=== PATIENT | male | born 1955 | race Caucasian/White ===

== ENCOUNTER → 2018-10-04 07:38 | Outpatient (CLI) | payer OTHER, SELFPAY ==
--- NOTE | 2018-10-04 08:00 | US_ITS ---
US abdomen complete HISTORY: ITS.REASON: RUQ PAIN, VENTRAL HERNIA, GERD, NAUSEA ORDERING PHYSICIAN: Nancy Finnegan PATIENT AGE: 63 years COMPARISON: None FINDINGS: Study is somewhat limited technically due to patient's body habitus. PANCREAS:Not well demonstrated due to overlying bowel gas and patient's body habitus. LIVER:No focal liver lesions demonstrated. Homogeneous echogenicity. No intrahepatic biliary ductal dilatation evident RIGHT KIDNEY:Right kidney is demonstrated in the right lower quadrant. No hydronephrosis LEFT KIDNEY:There is mild cortical thinning of left kidney. No hydronephrosis GALLBLADDER:There is sludge within the gallbladder. No stones gallbladder wall thickening or pericholecystic fluid. AORTA:No evidence of aneurysmal dilatation. SPLEEN:Mild splenomegaly at 14 cm ASCITES:None demonstrated. IMPRESSION: Somewhat limited exam showing sludge within the gallbladder without obvious stones wall thickening or pericholecystic fluid. Suspect right-sided pelvic kidney without hydronephrosis.. Cortical thinning of left kidney Mild splenomegaly
== END ==
PROVIDERS: PCP Nurse Practitioner Family; Visit Provider Nurse Practitioner Family
DX: R10.11 Right upper quadrant pain (principal); R11.0 Nausea; K43.9 Ventral hernia without obstruction or gangrene; K21.0 Gastro-esophageal reflux disease with esophagitis
CPT/HCPCS: 76700

== ENCOUNTER → 2018-11-13 14:49 | Outpatient (POV) | payer OTHER, SELFPAY | PROVIDERS: Visit Provider Nurse Practitioner Acute Care | DX: Z00.00 Encounter for general adult medical examination without abnormal findings (principal) ==

== ENCOUNTER → 2018-12-25 10:09 | Outpatient (CLI) | payer OTHER, SELFPAY ==
--- NOTE | 2018-12-25 10:21 | NM_ITS ---
HEPATOBILIARY SCAN WITH CCK: ORDERING PHYSICIAN : Mook Peterson MD PATIENT AGE: 63 years GENDER: Male HISTORY: Right upper quadrant pain and nausea Following 8.86 millicuries Tc Choletec, images of the right upper quadrant were obtained. There is prompt uptake of radionuclide by the liver which is grossly unremarkable. There is filling of the gallbladder but lack of activity within the small bowel during the first 60 minutes. Nonspecific but can be seen with Sphincter of Oddi spasm or dysfunction. Also worth checking to make sure the patient had no oral opioid pain medicine prior to this study which can affect the Sphincter of Oddi The gallbladder was allowed to fill out to 50 to 60 minutes which point 2.1 MCG micrograms CCK was administered by way infusion pump in the typical fashion. This results in92 percent fraction (normal greater than 50%; borderline 35-50%). The patient experienced nausea with CCK Visual inspection supports robust gallbladder ejection fraction. IMPRESSION: . Normal 92% gallbladder ejection fraction following CCK Patient experienced nausea with CCK administration However I would note that during the first 60 minutes there was lack of small bowel activity on the pre-CCK images, which may reflect Sphincter of Oddi spasm or dysfunction. Correlation required
== END ==
PROVIDERS: PCP Internal Medicine Adolescent Medicine; Visit Provider Internal Medicine Gastroenterology
DX: R10.11 Right upper quadrant pain (principal)
CPT/HCPCS: 78226; A9537; J2805

== ENCOUNTER → 2019-02-15 11:44 | Outpatient (CLI) | payer OTHER, SELFPAY ==
[2019-02-15 11:51] LABS: Adenovirus F 40/41, stool Not Detected (NotDetected); Astrovirus Not Detected (NotDetected); Campylobacter Not Detected (NotDetected); Clostridium Difficile A/B, PCR Not Detected (NotDetected); Cryptosporidium Not Detected (NotDetected); Cyclospora Cayetanesis Not Detected (NotDetected); Entamoeba histolytica Not Detected (NotDetected); Enteroaggregative E coli Not Detected (NotDetected); Enteropathogenic E coli Not Detected (NotDetected); Enterotoxigenic E coli Not Detected (NotDetected); Giardia lamblia Not Detected (NotDetected); Norovirus Not Detected (NotDetected); Plesimonas Shigalloides, PCR Not Detected (NotDetected); Rotavirus A Not Detected (NotDetected); Sapovirus Not Detected (NotDetected); Shiga-like toxin E coli Not Detected (NotDetected); Shigella Enterovasive E coli Not Detected (NotDetected); Vibrio Cholerae Not Detected (NotDetected); Vibrio, PCR Not Detected (NotDetected); Yersinia Entercolitica, PCR Not Detected (NotDetected)
[2019-02-15 20:12] LABS: Salmonella, PCR Detected (NotDetected)
== END ==
PROVIDERS: PCP Internal Medicine Adolescent Medicine; Visit Provider Internal Medicine Adolescent Medicine
DX: R19.7 Diarrhea, unspecified (principal); A02.9 Salmonella infection, unspecified
CPT/HCPCS: 87507

== ENCOUNTER → 2020-08-25 14:12 | Outpatient (CLI) | payer OTHER, MEDICARE, SELFPAY ==
[2020-08-25 15:59] LABS: Coronavirus 19 IgG Antibody Negative (Negative); Coronavirus 19 IgM Antibody Negative (Negative)
== END ==
PROVIDERS: Visit Provider Internal Medicine Adolescent Medicine
DX: Z01.818 Encounter for other preprocedural examination (principal)
CPT/HCPCS: 36415; 86328

== ENCOUNTER → 2020-09-02 13:50 | Outpatient (CLI) | payer OTHER, MEDICARE, SELFPAY | PROVIDERS: PCP Internal Medicine Adolescent Medicine; Visit Provider Internal Medicine Adolescent Medicine | DX: G47.33 Obstructive sleep apnea (adult) (pediatric) (principal) | CPT/HCPCS: 95806 ==

== ENCOUNTER → 2021-03-17 09:42 | Outpatient (CLI) | payer OTHER, MEDICARE, SELFPAY ==
[2021-03-17 13:58] LABS: Basophils # 0.1 K/mm3 (0-0.2); Basophils % 0.9 % (0.1-2.0); Eosinophils # 0.1 K/mm3 (0.0-0.4); Hematocrit 41.2 % (42.0-52.0); Lymphocytes # 1.5 K/mm3 (0.7-4.5); Mean Corpuscular HGB Conc 33.9 g/dL (31.8-35.4); Mean Corpuscular Volume 82.5 fl (80-94); Mean Platelet Volume 8.6 fl (7.4-10.4); Monocytes # 0.3 K/mm3 (0.1-1.0); Monocytes % 5.5 % (1.7-9.3); Neutrophils % 66.6 % (37.0-80.0); Platelet Count 202 K/mm3 (142-424); Red Cell Distribution Width 14.4 % (11.5-17.5)
[2021-03-17 14:15] LABS: Alanine Aminotransferase 43 U/L (12-78); Albumin Level 4.3 g/dl (3.5-5.0); Albumin/Globulin Ratio 1.7 (1.1-1.8); Alkaline Phosphatase 94 U/L (38-126); Anion Gap 13.3 mEq/L (5-15); Aspartate Amino Transferase 30 U/L (17-59); Bilirubin,Total 0.5 mg/dl (0.2-1.3); Blood Urea Nitrogen 15 mg/dl (9-20); Calcium 9.3 mg/dl (8.4-10.2); Carbon Dioxide 29 mmol/L (22.0-30.0); Chloride 100 mmol/L (98-107); Chol/HDL Ratio 3.3 (1-3.5); Cholesterol 146 mg/dl (140-200); Estimated Glomerular Filt Rate 85 ml/min (>60); GFR (African American) 102 ML/MIN (>60); Globulin 2.6 g/dL (1.3-3.2); Glucose 99 mg/dl (74-100); HDL Cholesterol 44 mg/dl (40-60); Potassium 4.3 mmoL/L (3.5-5.1); Sodium 138 mmol/L (136-145); Total Protein,Serum 6.9 g/dl (6.3-8.2); Triglycerides 78 mg/dl (30-150); VLDL Cholesterol 16 mg/dL (0-40)
[2021-03-17 14:42] LABS: Direct LDL Cholesterol 84.99 mg/dL (100-129)
[2021-03-17 14:44] LABS: Thyroid Stimulating Hormone 2.96 uIU/mL (0.465-4.68)
[2021-03-17 15:03] LABS: Vitamin B12 242 pg/mL (239-931)
[2021-03-17 15:23] LABS: Hemoglobin A1C 6.5 % (4.0-6.0)
== END ==
PROVIDERS: Visit Provider Internal Medicine Adolescent Medicine
DX: E11.42 Type 2 diabetes mellitus with diabetic polyneuropathy (principal); E78.5 Hyperlipidemia, unspecified; Z79.84 Long term (current) use of oral hypoglycemic drugs
CPT/HCPCS: 36415; 80053; 80061; 82607; 83036; 84443; 85025

== ENCOUNTER → 2021-08-11 08:22 | Outpatient (CLI) | payer OTHER, MEDICARE, SELFPAY ==
[2021-08-12 11:54] LABS: Basophils % 0.7 % (0.1-2.0); Eosinophils # 0.1 K/mm3 (0.0-0.4); Eosinophils % 2.1 % (0.1-12.0); Hematocrit 43.6 % (42.0-52.0); Lymphocytes # 1.5 K/mm3 (0.7-4.5); Lymphocytes % 25.7 % (10-50); Mean Corpuscular HGB Conc 32.2 g/dL (31.8-35.4); Mean Corpuscular Hemoglobin 28.4 pg (27.0-31.2); Mean Corpuscular Volume 88.3 fl (80-94); Monocytes # 0.4 K/mm3 (0.1-1.0); Monocytes % 6.3 % (1.7-9.3); Neutrophils # 3.9 K/mm3 (1.8-7.8); Neutrophils % 65.2 % (37.0-80.0); Platelet Count 237 K/mm3 (142-424); Red Blood Count 4.93 M/mm3 (4.60-6.20); Red Cell Distribution Width 14.1 % (11.5-17.5); White Blood Count 5.9 K/mm3 (4.8-10.8)
[2021-08-12 12:27] LABS: Chloride 100 mmol/L (98-107); Potassium 5.3 mmoL/L (3.5-5.1); Sodium 138 mmol/L (136-145)
[2021-08-12 12:29] LABS: Blood Urea Nitrogen 18 mg/dl (9-20); Estimated Glomerular Filt Rate 84 ml/min (>60); GFR (African American) 102 ML/MIN (>60)
[2021-08-12 12:30] LABS: Alanine Aminotransferase 59 U/L (12-78); Albumin Level 4.2 g/dl (3.5-5.0); Albumin/Globulin Ratio 1.7 (1.1-1.8); Alkaline Phosphatase 91 U/L (38-126); Anion Gap 13.3 mEq/L (5-15); Aspartate Amino Transferase 38 U/L (17-59); Bilirubin,Total 0.3 mg/dl (0.2-1.3); Calcium 8.8 mg/dl (8.4-10.2); Carbon Dioxide 30 mmol/L (22.0-30.0); Chol/HDL Ratio 3.5 (1-3.5); Cholesterol 143 mg/dl (140-200); Globulin 2.5 g/dL (1.3-3.2); Glucose 154 mg/dl (74-100); HDL Cholesterol 41 mg/dl (40-60); Total Protein,Serum 6.7 g/dl (6.3-8.2); Triglycerides 81 mg/dl (30-150); VLDL Cholesterol 16 mg/dL (0-40)
[2021-08-12 12:41] LABS: Direct LDL Cholesterol 91.26 mg/dL (100-129)
[2021-08-12 14:18] LABS: Hemoglobin A1C 6.2 % (4.0-6.0)
[2021-08-12 22:39] LABS: Prostate Specific Ag Screen 1.4 ng/ml (0.0-4.0)
[2021-08-12 22:57] LABS: Vitamin B12 679 pg/mL (239-931)
== END ==
PROVIDERS: Visit Provider Internal Medicine Adolescent Medicine
DX: Z00.00 Encounter for general adult medical examination without abnormal findings (principal); E11.9 Type 2 diabetes mellitus without complications; E78.5 Hyperlipidemia, unspecified; E11.42 Type 2 diabetes mellitus with diabetic polyneuropathy; Z12.5 Encounter for screening for malignant neoplasm of prostate; Z79.84 Long term (current) use of oral hypoglycemic drugs
CPT/HCPCS: 80053; 80061; 82607; 83036; 85025; G0103

== ENCOUNTER 2021-08-23 13:50 | Emergency (ER) | payer OTHER, MEDICARE, SELFPAY ==
[2021-08-23 13:52] VITALS: BP 174/86; PULSE 92; RESP 18; TEMP 36.8; O2SAT 94; BMI 31.7
--- NOTE | 2021-08-23 14:10 | HMH.EDGENADL ---
ED Disposition Clinical Impression: Knee pain, chronic Qualifiers: Laterality: right Qualified Code(s): M25.561 - Pain in right knee; G89.29 - Other chronic pain Disposition: Home, Self-Care Condition on Discharge: Good Referrals: Michael Ann MD [Primary Care Provider] - 3 days (Call for appointment) Time of Disposition: 14:27 - Critical Care Critical Care Time: No Attestation: On 08/23/21, the high probability of a clinically significant, sudden or life threatening deterioration of the following system(s) required my full and direct attention, intervention and personal management. The time I documented below is in addition to time spent performing reported procedures but includes the following listed in this critical care notation. Medical Decision Making - Medical Records Medical records reviewed: Yes: I reviewed the patient's medical records. - Chip Inquiry Pt receiving controlled substance: No Vital Signs: 08/23/21 13:52 Temperature 98.2 F Temperature Source Oral Pulse Rate [Left Radial] 92 H Respiratory Rate 18 Blood Pressure [Right Arm] 174/86 H Blood Pressure Mean [Right Arm] 115 Blood Pressure Source [Right Arm] Automatic Cuff Blood Pressure Position [Right Arm] Sitting 02 Sat by Pulse Oximetry 94 L Oxygen Delivery Method Room Air Medical Decision Narrative: 66yo M evaluated the emergency department secondary to right knee pain. Patient is in no acute distress and there is been no acute injury. His knee exam is benign other than pain. Suspect the patient has severe arthritis as he reports it is difficult to sleep and the pain wakes him from sleep with any movement. Patient encouraged to follow-up with his PCP for possible steroid injection and referral for orthopedics. General Adult HPI - General Stated complaint: right knee pain Time Seen by Provider: 08/23/21 14:00 Mode of Arrival: Ambulatory - History of Present Illness HPI narrative: 66yo M presents the emergency department secondary right knee pain. Patient reports he has had this for several years but recently worsened. States worsening symptoms x3 days. No fall, twisting injury. No previous surgery or injections to the affected joint. No fever. Not noticed any warmth, redness, swelling to the right knee. - Related Data Home Medications Medication Instructions Recorded Confirmed Alogliptin Benzoate [Nesina] 25 mg PO DAILY 12/15/18 12/15/18 Atorvastatin Calcium [Lipitor 80mg 80 mg PO DAILY 12/15/18 12/15/18 Tab] Gabapentin [Gabapentin 100mg Cap] 100 mg PO DAILY 12/15/18 12/15/18 Ibuprofen [Ibuprofen 200MG Capsule] 200 mg PO DAILY 12/15/18 12/15/18 Metformin HCl 1,000 mg PO DAILY 12/15/18 12/15/18 Omeprazole [Omeprazole 40mg 40 mg PO DAILY 12/15/18 12/15/18 Capsule] Potassium 99 mg PO DAILY 12/15/18 12/15/18 Tamsulosin HCl [Flomax 0.4mg 0.4 mg PO DAILY 12/15/18 12/15/18 capsule] Allergies Allergy/AdvReac Type Severity Reaction Status Date / Time Penicillins Allergy Verified 12/12/18 11:29 [facility] History - Hepatitis A Screen Drug use history?: No Attestation statement:: This patient has been screened for Hepatitis A risk factors. I have reviewed the patient's past medical history: Yes Medical History: Reports:: Diabetes Mellitus Type 2, Hyperlipidemia Denies:: Diabetes Mellitus Type 1, Internal Pacemaker, Lung Disease, Seizures Other Surgeries: No: Pacemaker Family Hx:: No significant family history ROS Obtained: Yes All systems reviewed & no additional complaints - Musculoskeletal Musculoskeletal: Reports as per HPI Physical Exam - General General appearance: alert, in no apparent distress - Head Head exam: atraumatic, normocephalic, normal inspection - Respiratory Respiratory exam: Absent: respiratory distress - Cardiovascular Cardiovascular exam: Present: regular rate, normal rhythm - Abdominal Exam Abdominal exam: Present: soft - Expanded Lower Extremit
[2021-08-23 14:30] VITALS: BP 143/79; PULSE 98; RESP 20; TEMP 36.6; O2SAT 100
== END 2021-08-23 14:31 | disposition home or self-care (01) ==
PROVIDERS: Emergency Provider Family Medicine; PCP Internal Medicine Adolescent Medicine
DX: M25.561 Pain in right knee (principal); G89.29 Other chronic pain; E11.9 Type 2 diabetes mellitus without complications; E78.5 Hyperlipidemia, unspecified
CPT/HCPCS: 99281

== ENCOUNTER → 2021-08-25 15:59 | Outpatient (CLI) | payer OTHER, MEDICARE, SELFPAY ==
--- NOTE | 2021-08-25 | XR_ITS ---
PROCEDURE INFORMATION: Exam: XR Right Knee Exam date and time: 08/25/2021 12:00 AM Age: 66 years old Clinical indication: Pain; Knee; Right; Additional info: Chronic knee pain TECHNIQUE: Imaging protocol: XR Right knee. Views: 3 views. COMPARISON: No relevant prior studies available. FINDINGS: Bones/joints: Tricompartmental degenerative changes are seen worst in the medial compartment with significant loss of joint space. Mild osteophytosis noted as well. No fracture. No malalignment. Trace suprapatellar effusion. Soft tissues: Normal. IMPRESSION: [id number]-rndivvfo tricompartmental degenerative arthritis worst in the medial compartment
== END ==
PROVIDERS: PCP Internal Medicine Adolescent Medicine; Visit Provider Internal Medicine Adolescent Medicine
DX: M25.561 Pain in right knee (principal)
CPT/HCPCS: 73562

== ENCOUNTER → 2022-03-26 07:29 | Outpatient (CLI) | payer MEDICARE, SELFPAY ==
[2022-03-25 16:56] LABS: Chloride 100 mmol/L (98-107); Potassium 4.2 mmoL/L (3.5-5.1); Sodium 136 mmol/L (136-145)
[2022-03-25 16:59] LABS: Alanine Aminotransferase 60 U/L (12-78); Albumin Level 4.2 g/dl (3.5-5.0); Albumin/Globulin Ratio 1.7 (1.1-1.8); Alkaline Phosphatase 93 U/L (38-126); Anion Gap 10.2 mEq/L (5-15); Aspartate Amino Transferase 43 U/L (17-59); Bilirubin,Total 0.5 mg/dl (0.2-1.3); Blood Urea Nitrogen 17 mg/dl (9-20); Carbon Dioxide 30 mmol/L (22.0-30.0); Cholesterol 137 mg/dl (140-200); Estimated Glomerular Filt Rate 84 ml/min (>60); GFR (African American) 102 ML/MIN (>60); Globulin 2.5 g/dL (1.3-3.2); Total Protein,Serum 6.7 g/dl (6.3-8.2); Triglycerides 48 mg/dl (30-150); VLDL Cholesterol 10 mg/dL (0-40)
[2022-03-25 17:00] LABS: Calcium 9.3 mg/dl (8.4-10.2); Chol/HDL Ratio 2.9 (1-3.5); Glucose 92 mg/dl (74-100); HDL Cholesterol 48 mg/dl (40-60)
[2022-03-25 17:11] LABS: Direct LDL Cholesterol 78.32 mg/dL (100-129)
== END ==
PROVIDERS: PCP Internal Medicine Adolescent Medicine; Visit Provider Internal Medicine Adolescent Medicine
DX: E11.9 Type 2 diabetes mellitus without complications (principal); Z79.84 Long term (current) use of oral hypoglycemic drugs
CPT/HCPCS: 80053; 80061; 83036

== ENCOUNTER 2022-05-02 05:23 | Emergency (ER) | payer MEDICARE, SELFPAY ==
--- NOTE | 2022-05-02 05:31 | XR_ITS ---
PROCEDURE INFORMATION: Exam: XR Left Humerus Exam date and time: 05/02/2022 5:30 AM Age: 66 years old Clinical indication: Injury or trauma; Fall; Blunt trauma (contusions or hematomas); Arm, upper; Left; Additional info: PT states his tripped and he went to catch her and has had left shoulder/arm pain ever since TECHNIQUE: Imaging protocol: Radiologic exam of the Left humerus. Views: 2 or more views. COMPARISON: CR CS5 CERVICAL SPINE 4 OR 5 VIEWS 02/04/2017 4:42 PM FINDINGS: Bones/joints: Normal. Soft tissues: Normal. IMPRESSION: No acute findings.
--- NOTE | 2022-05-02 05:31 | XR_ITS ---
PROCEDURE INFORMATION: Exam: XR Left Shoulder Exam date and time: 05/02/2022 5:32 AM Age: 66 years old Clinical indication: Injury or trauma; Fall; Blunt trauma (contusions or hematomas); Shoulder; Left; Additional info: PT states his tripped and he went to catch her and has had left shoulder/arm pain ever since TECHNIQUE: Imaging protocol: Radiologic exam of the Left shoulder. Views: 2 or more views. COMPARISON: CR XR HUMERUS LT 05/02/2022 5:30 AM FINDINGS: Bones/joints: Normal. Soft tissues: Normal. IMPRESSION: No acute findings.
[2022-05-02 05:32] VITALS: BP 206/93; PULSE 100; RESP 18; TEMP 37; O2SAT 94; BMI 34.0
--- NOTE | 2022-05-02 05:33 | HMH.EDUPEXT ---
ED Disposition Clinical Impression: Injury of left shoulder Qualifiers: Encounter type: initial encounter Qualified Code(s): S49.92XA - Unspecified injury of left shoulder and upper arm, initial encounter Disposition: Home, Self-Care Condition on Discharge: Fair Instructions: DI for Rotator Cuff Injury Referrals: LIS VILLEGAS MD [Primary Care Provider] - Ran Sweet JR, MD [Physician] - - Critical Care Critical Care Time: No Attestation: On , the high probability of a clinically significant, sudden or life threatening deterioration of the following system(s) required my full and direct attention, intervention and personal management. The time I documented below is in addition to time spent performing reported procedures but includes the following listed in this critical care notation. Medical Decision Making - Medical Records Medical records reviewed: Yes: I reviewed the patient's medical records. - Chip Inquiry Pt receiving controlled substance: Yes Chip was queried for this patient: No Risks and benefits of using a controlled substance: were discussed with pt by me Vital Signs: 05/02/22 05:32 Temperature 98.6 F Temperature Source Oral Pulse Rate [Apical] 100 H Respiratory Rate 18 Blood Pressure [Right Arm] 206/93 H Blood Pressure Mean [Right Arm] 130 Blood Pressure Source [Right Arm] Automatic Cuff Blood Pressure Position [Right Arm] Sitting 02 Sat by Pulse Oximetry 94 L Oxygen Delivery Method Room Air Orders (Tests/Meds): ORDERS Category Date Time Status XR humerus LT Stat Exams 05/02/22 05:31 Taken XR shoulder LT min 2V Stat Exams 05/02/22 05:31 Taken Medical Decision Narrative: In review this is a 66-year-old male who presents with left arm injury. Hemodynamically stable and nontoxic-appearing. Patient's physical exam most likely concerning for underlying rotator cuff injury. We will shoot x-rays to evaluate for any bony abnormalities. His pain was treated with 5 mg of oral oxycodone. His x-ray studies were negative for any acute fractures. We will get him a sling for comfort and have him follow-up with orthopedics within the next week for evaluation for rotator cuff injury. Stable for discharge. Return precautions given. Upper Extremity HPI - General Stated Complaint: Left shoulder pain Time Seen by Provider: 05/02/22 05:30 - History of Present Illness HPI narrative: Patient is a 66-year-old male who presents after sustaining a left arm injury. He says that he was stopping somebody from falling around 11:00 last night and reached out to grab them when he subsequently started feeling a significant amount of pain in his left upper arm. He says that his pain is worse with movement. Relieved with rest. He says he tried to go to sleep and he continued to have a substantial amount of pain. He has never hurt this arm before. Denies any numbness or tingling to his extremities. Denies any other injuries. - Related Data Home Medications Medication Instructions Recorded Confirmed Atorvastatin Calcium [Lipitor 80mg 80 mg PO DAILY 12/15/18 04/22/22 Tab] Gabapentin [Gabapentin 100mg Cap] 100 mg PO DAILY 12/15/18 04/22/22 Omeprazole [Omeprazole 40mg 40 mg PO DAILY 12/15/18 04/22/22 Capsule] Tamsulosin HCl [Flomax 0.4mg 0.4 mg PO DAILY 12/15/18 04/22/22 capsule] aspirin 81 mg tablet,delayed 81 mg PO DAILY tab 03/25/22 04/22/22 release fluticasone propionate 50 1 spray NS DAILY 03/25/22 04/22/22 mcg/actuation nasal spray,suspension glimepiride 2 mg tablet 2 mg PO BID tab 03/25/22 04/22/22 Previous Rx's Medication Instructions Recorded peg 3350-electrolytes 236 240 ml PO Q10M #4000 ml 03/31/22 gram-22.74 gram-6.74 gram-5.86 gram solution cetirizine 10 mg tablet 10 mg PO DAILY 90 Days #90 tab 04/07/22 metformin 1,000 mg tablet 1,000 mg PO BID 90 Days #180 tab 04/07/22 losartan 100 1 tab PO DAILY 90 Days #90 tab 04/22/22 mg-h
[2022-05-02 06:04] VITALS: BP 180/78; PULSE 78; RESP 18; TEMP 36.8; O2SAT 99
== END 2022-05-02 06:06 | disposition home or self-care (01) ==
PROVIDERS: Emergency Provider Student in an Organized Health Care Education/Training Program; PCP Internal Medicine Adolescent Medicine
DX: S49.92XA Unspecified injury of left shoulder and upper arm, initial encounter (principal)
CPT/HCPCS: 73030; 73060; 99284

== ENCOUNTER → 2022-06-02 13:30 | Outpatient (CLI) | payer MEDICARE, SELFPAY | PROVIDERS: PCP Internal Medicine Adolescent Medicine; Visit Provider Surgery | DX: Z01.812 Encounter for preprocedural laboratory examination (principal); Z20.822 Contact with and (suspected) exposure to COVID-19; Z12.11 Encounter for screening for malignant neoplasm of colon | CPT/HCPCS: C9803; U0003; U0005 ==

== ENCOUNTER 2022-06-04 09:18 | Day surgery (SDC) | payer MEDICARE, SELFPAY ==
[2022-06-04 09:43] VITALS: BP 174/77; PULSE 86; RESP 18; TEMP 36.7; O2SAT 94; BMI 35.4
[2022-06-04 09:52] LABS: POC Glucose,Bedside 117 (70-110)
[2022-06-04 10:37] VITALS: O2SAT 94
--- NOTE | 2022-06-04 10:38 | EXP.ANES.CKL ---
PFSH PFS Medical History (Updated 06/04/22 @ 09:49 by Anila James RN) Allergies Aneurysm Diabetes mellitus, type 2 History of cataract History of gastroesophageal reflux (GERD) Hyperlipidemia Hypertension Osteoarthritis Overactive bladder Surgical History (Updated 06/04/22 @ 09:49 by Anila James RN) History of colonoscopy Family History (Updated 06/04/22 @ 09:50 by Anila James RN) Other Family history of diabetes mellitus type II Social History (Updated 06/04/22 @ 09:50 by Anila James RN) Smoking Status: Never smoker alcohol intake: never substance use type: denies use current occupational status: retired Travel in the last 8 weeks: None household members: spouse caffeine: Yes [facility] Anesthesia Checklist Patient Identification Patient Identification: Arm Band Structural Data Admitted From: Home Planned Operative Procedure/s: Colonoscopy Consent for Planned Operative Procedure(s) Verified: Yes Verified Documents: Surgical Consent and History and Physical NPO Status Verified Time NPO: 00:00 Additional verifications Anesthesia Reactions: No Airway Assessment C-Spine Mobility Assessed: Yes TMJ Mobility Assessed: Yes Dentition: Good Dentition Neurological Assessment Level of Consciousness: Awake and Alert Anesthesia Plan Anesthesia Risk discussed: Yes Anesthesia Plan: Verified ASA Class: III Anesthesia Type: MAC
[2022-06-04 11:38] VITALS: BP 133/78; PULSE 79; RESP 16; TEMP 36.3; O2SAT 89
--- NOTE | 2022-06-04 11:38 | HMH.SCOPE ---
Procedure: Date: 06/04/22 Patient Date of :: 1955 Procedure Performed:: Total colonoscopy with polypectomy using snare and biopsy Indications:: Patient is a 67-year-old male with history of hypertension, diabetes, sleep apnea from [place] referred by Dr. Michael Ann for colonoscopy. Patient had undergone apparently previous colonoscopy a few years ago and had 5 polyps removed. Performing Provider:: Lai Cortez MD Referring Provider:: Michael Ann MD Sedation:: MAC sedation Procedure:: Patient was taken to endoscopy procedure room. He was positioned in lateral decubitus position. Adequate intravenous sedation was achieved with anesthesia titration propofol. Variable Olympus colonoscope was inserted via the anus. Was advanced to the cecum with some minor difficulty due to redundancy of the sigmoid colon. Colonic preparation was fair to poor with particulate stool throughout the colon and some undigested vegetable matter and undigested pills. Ileocecal valve and appendiceal orifice were identified. Colonoscope was slowly withdrawn through the colon with thorough irrigation and suctioning performed however the colon could not be completely cleared allowing for fair to decent visualization. Polyps were encountered. They were removed by a variety of technique. Please see findings below. He had some scattered diverticulosis. Retroflexion within the rectum revealed no evidence of any pathologic internal hemorrhoids. Colonoscope was withdrawn. Findings:: Patient had an irregular adenomatous appearing ascending polyp measuring about 7 to 8 mm. Attempt was made to remove this with cold snare with completion polypectomy performed with hot snare. Transverse colon polyp removed with cold snare Transverse colon polyp #2 removed with cold snare Diminutive splenic flexure polyp removed with cold snare Sigmoid polyp removed with cold snare Rectosigmoid polyp removed with biopsy forceps He had a total of 6 colon polyps removed most notable is the ascending colon polyp removed with hot snare measuring about 7 to 8 mm Scattered diverticulosis Recommendations:: Repeat colonoscopy pending pathology. Given suboptimal preparation and polyps likely within 2 years. With repeat colonoscopy would recommend actual low residue diet and alternate bowel prep Complications:: None immediately apparent Estimated blood obtained (mL): 2
[2022-06-04 11:48] VITALS: BP 126/78; PULSE 73; RESP 16; O2SAT 97
[2022-06-04 11:58] VITALS: BP 149/78; PULSE 73; RESP 16; TEMP 36.3; O2SAT 95
[2022-06-04 12:08] VITALS: BP 150/78; PULSE 73; RESP 16; TEMP 36.3; O2SAT 95
== END 2022-06-04 12:15 | disposition home or self-care (01) ==
PROVIDERS: PCP Internal Medicine Adolescent Medicine; Visit Provider Surgery
PROC: 0DJD8ZZ Inspection of Lower Intestinal Tract, Via Natural or Artificial Opening Endoscopic (ICD-10-PCS; principal; 2022-06-04 10:30)
DX: Z12.11 Encounter for screening for malignant neoplasm of colon (principal); K63.5 Polyp of colon; Z86.010 Personal history of colon polyps; K57.90 Diverticulosis of intestine, part unspecified, without perforation or abscess without bleeding; Z79.899 Other long term (current) drug therapy; E11.9 Type 2 diabetes mellitus without complications
CPT/HCPCS: 45380; 45385; 82962; 88305; J2704

== ENCOUNTER → 2022-06-24 14:09 | Outpatient (CLI) | payer MEDICARE, SELFPAY ==
[2022-06-24 19:10] LABS: Basophils # 0.1 K/mm3 (0-0.2); Basophils % 0.9 % (0.1-2.0); Eosinophils # 0.4 K/mm3 (0.0-0.4); Eosinophils % 4.7 % (0.1-12.0); Hemoglobin 11.5 g/dL (14.1-18.0); Lymphocytes % 27.5 % (10-50); Mean Corpuscular HGB Conc 32.9 g/dL (31.8-35.4); Mean Corpuscular Hemoglobin 28.7 pg (27.0-31.2); Mean Corpuscular Volume 87.2 fl (80-94); Mean Platelet Volume 9.8 fl (7.4-10.4); Monocytes # 0.4 K/mm3 (0.1-1.0); Monocytes % 5.2 % (1.7-9.3); Neutrophils # 4.6 K/mm3 (1.8-7.8); Neutrophils % 61.7 % (37.0-80.0); Platelet Count 271 K/mm3 (142-424); Red Blood Count 4.02 M/mm3 (4.60-6.20); White Blood Count 7.4 K/mm3 (4.8-10.8)
[2022-06-24 19:53] LABS: Anion Gap 16.4 mEq/L (5-15); Blood Urea Nitrogen 25 mg/dl (9-20); Calcium 8.7 mg/dl (8.4-10.2); Carbon Dioxide 31 mmol/L (22.0-30.0); Chloride 95 mmol/L (98-107); Estimated Glomerular Filt Rate 67 ml/min (>60); GFR (African American) 81 ML/MIN (>60); Glucose 119 mg/dl (74-100); Potassium 4.4 mmoL/L (3.5-5.1); Sodium 138 mmol/L (136-145)
== END ==
PROVIDERS: PCP Internal Medicine Adolescent Medicine; Visit Provider Internal Medicine Adolescent Medicine
DX: K92.2 Gastrointestinal hemorrhage, unspecified (principal); M25.512 Pain in left shoulder
CPT/HCPCS: 80048; 85025

== ENCOUNTER → 2022-07-01 14:24 | Outpatient (CLI) | payer MEDICARE, SELFPAY ==
--- NOTE | 2022-07-01 14:25 | MR_ITS ---
FINAL REPORT CLINICAL HISTORY: left shoulder pain injury x 1 month ago limited rom FINDINGS: Multiplanar MR imaging of the left shoulder was performed without contrast. There are complete tears of the distal supraspinatus and infraspinatus tendons. The tendons are retracted to the mid humeral head. There is mild supraspinatus and moderate infraspinatus muscle atrophy. There is mild a.c. joint arthrosis with mild outlet narrowing. A moderate amount of fluid is present in the acromioclavicular joint and subacromial/subdeltoid bursa. No labral tear is identified. The long head of the biceps tendon is intact. No significant glenohumeral joint effusion is identified. There is no evidence of soft tissue mass or cyst. IMPRESSION: Complete tears of the distal supraspinatus and infraspinatus tendon as above. Supraspinatus and infraspinatus muscle atrophy. Mild a.c. joint arthrosis with moderate subacromial/subdeltoid bursitis. Reviewed, Interpreted and Dictated by Lai Hedrick III, MD Transcribed by [place] Cruz Authenticated and . [facility]
== END ==
PROVIDERS: PCP Internal Medicine Adolescent Medicine; Visit Provider Internal Medicine Adolescent Medicine
DX: M75.102 Unspecified rotator cuff tear or rupture of left shoulder, not specified as traumatic (principal)
CPT/HCPCS: 73221

== ENCOUNTER → 2022-07-16 12:36 | Outpatient (CLI) | payer MEDICARE, SELFPAY ==
--- NOTE | 2022-07-16 13:07 | XR_ITS ---
FINAL REPORT CLINICAL HISTORY: pre op, htn FINDINGS: 2 views of the chest were obtained . The heart is normal in size. The mediastinum is within normal limits. The lungs are clear. There is no pneumothorax. Osseous structures demonstrate moderate degenerative changes of the thoracic spine. IMPRESSION: No acute cardiopulmonary process. Reviewed, Interpreted and Dictated by Lai Hedrick III, MD Transcribed by Izzy Hrat Authenticated and [facility]
[2022-07-16 13:58] LABS: Hemoglobin A1C 7.6 % (4.0-6.0)
[2022-07-16 14:05] LABS: Basophils % 0.6 % (0.1-2.0); Eosinophils # 0.1 K/mm3 (0.0-0.4); Eosinophils % 1.9 % (0.1-12.0); Hematocrit 38.1 % (42.0-52.0); Hemoglobin 12.1 g/dL (14.1-18.0); Lymphocytes # 1.6 K/mm3 (0.7-4.5); Lymphocytes % 23.5 % (10-50); Mean Corpuscular HGB Conc 31.7 g/dL (31.8-35.4); Mean Corpuscular Hemoglobin 27.9 pg (27.0-31.2); Mean Corpuscular Volume 88.1 fl (80-94); Monocytes # 0.3 K/mm3 (0.1-1.0); Monocytes % 4.6 % (1.7-9.3); Neutrophils # 4.8 K/mm3 (1.8-7.8); Neutrophils % 69.4 % (37.0-80.0); Platelet Count 288 K/mm3 (142-424); Red Blood Count 4.33 M/mm3 (4.60-6.20); Red Cell Distribution Width 14.4 % (11.5-17.5); White Blood Count 6.8 K/mm3 (4.8-10.8)
[2022-07-16 14:07] LABS: Chloride 98 mmol/L (98-107); Potassium 4.1 mmoL/L (3.5-5.1); Sodium 139 mmol/L (136-145)
[2022-07-16 14:10] LABS: Alanine Aminotransferase 46 U/L (12-78); Albumin Level 4.5 g/dl (3.5-5.0); Alkaline Phosphatase 103 U/L (38-126); Anion Gap 15.1 mEq/L (5-15); Aspartate Amino Transferase 32 U/L (17-59); Bilirubin,Total < 0.1 mg/dl (0.2-1.3); Blood Urea Nitrogen 14 mg/dl (9-20); Carbon Dioxide 30 mmol/L (22.0-30.0); Estimated Glomerular Filt Rate 84 ml/min (>60); GFR (African American) 102 ML/MIN (>60); Globulin 2.3 g/dL (1.3-3.2); Total Protein,Serum 6.8 g/dl (6.3-8.2)
[2022-07-16 14:11] LABS: Calcium 8.5 mg/dl (8.4-10.2); Glucose 140 mg/dl (74-100)
== END ==
PROVIDERS: PCP Internal Medicine Adolescent Medicine; Visit Provider Orthopaedic Surgery
DX: M75.102 Unspecified rotator cuff tear or rupture of left shoulder, not specified as traumatic (principal); G89.29 Other chronic pain; M25.561 Pain in right knee; E11.9 Type 2 diabetes mellitus without complications; Z79.84 Long term (current) use of oral hypoglycemic drugs
CPT/HCPCS: 36415; 71046; 80053; 83036; 85025

== ENCOUNTER 2022-08-03 08:13 | Day surgery (SDC) | payer MEDICARE, SELFPAY ==
[2022-08-02 08:46] VITALS: BMI 36.1
[2022-08-03] VITALS (11 sets, daily range): BP systolic 145–185; BP diastolic 68–88; PULSE 71–98; RESP 16–18; TEMP 36.1–36.6; O2SAT 91–100
[2022-08-03 09:15] LABS: POC Glucose,Bedside 141 (70-110)
--- NOTE | 2022-08-03 09:44 | EXP.ANES.CKL ---
[facility] Medical History Allergies Aneurysm Diabetes mellitus, type 2 History of cataract History of gastroesophageal reflux (GERD) Hyperlipidemia Hypertension Osteoarthritis Overactive bladder Sleep apnea Surgical History History of colonoscopy Family History Other Family history of diabetes mellitus type II Social History Smoking Status: Never smoker alcohol intake: never substance use type: denies use current occupational status: retired Travel in the last 8 weeks: None household members: spouse caffeine: Yes [facility] Anesthesia Checklist Patient Identification Patient Identification: Arm Band Structural Data Admitted From: Home Planned Operative Procedure/s: Left Shoulder Arthroscopy, Rotator Cuff Repair Consent for Planned Operative Procedure(s) Verified: Yes Verified Documents: Surgical Consent and History and Physical NPO Status Verified Time NPO: 00:00 Additional verifications Anesthesia Reactions: No Hx Blood Transfusions: No Blood Transfusion Reaction: No Airway Assessment C-Spine Mobility Assessed: Yes TMJ Mobility Assessed: Yes Dentition: Good Dentition Neurological Assessment Level of Consciousness: Awake and Alert Anesthesia Plan Anesthesia Risk discussed: Yes Anesthesia Plan: Verified ASA Class: III Anesthesia Type: General w/block (Left Interscalene Block. Risks/benefits explained. Pt verbalized understanding)
--- NOTE | 2022-08-03 12:49 | EXP.OP.NOTE ---
Date of procedure: 08/03/22 Pre-op Diagnosis:: Left shoulder rotator cuff tear and impingement Post-op Diagnosis:: Left shoulder rotator cuff tear and impingement Procedure performed:: Left shoulder arthroscopy with rotator cuff repair and subacromial decompression Surgeon:: Damian Moreno MD Fitter Type Bar And Segment(s):: TIAGO Samay[place] KAIAWHINA KOHANGA REO:: Aditya Carnes Anesthesia: GETA and regional Estimated blood loss (mL): 5 Clinical Note:: Lai is a very pleasant 67-year-old male who recently injured his left shoulder. MRI revealed a large traumatic full-thickness rotator cuff tear of the supraspinatus and infraspinatus with retraction to the mid humeral head. Minimal muscle atrophy. Consistent with an acute traumatic tear. He had very limited active range of motion. We discussed all the risks, benefits and alternatives to left shoulder arthroscopy for rotator cuff repair and he agreed to proceed. Operative findings:: Left shoulder large full-thickness retracted rotator cuff tear of the supraspinatus and infraspinatus. Rotator cuff tendon tear had good mobility and we were able to restore the footprint to the greater tuberosity. Biceps tendon was intact. Minimal glenohumeral joint degenerative changes. Intact subscapularis tendon. Operative note:: The patient was seen in the preoperative holding area. He received Ancef 2 g IV prophylactic antibiotics within 1 hour incision time. I marked the left shoulder to confirm the correct operative site. Anesthesia performed an interscalene block for perioperative pain control and he was brought back to the operating room. General anesthesia induced without difficulty. He was placed in the lateral decubitus position and held in place with a beanbag. Axillary roll was placed and all of his bony prominences were well-padded. Left upper extremity prepped and draped in usual sterile fashion. Left arm was placed in the arm garcia with 15 pounds of traction. Timeout performed to confirm left shoulder arthroscopy and patient Lai Jordan. I made a posterior lateral viewing portal with an 11 blade scalpel. Arthroscope was introduced into the shoulder joint. I made an anterior superior portal localizing this with a spinal needle. I placed a 5.5 mm trocar over the switching stick. Diagnostic arthroscopy commenced. Long head biceps tendon seen to be intact. Mild chondromalacia of the glenohumeral joint that was debrided with a 4.0 mm shaver. Age expected labral degenerative changes debrided with a shaver as well. Subscapularis tendon seen to be intact. Large retracted rotator cuff tear of the supraspinatus and infraspinatus. The undersurface of this tear was debrided with a shaver back to a smooth stable border. The arthroscope was then redirected in the subacromial space. Lateral portal was established and a 7.0 mm trocar was placed through the lateral portal. The edges of the acromion were well-defined with a 4.0 mm shaver and then electrocautery wand. He was seen to have a subacromial spur anterior aspect of the acromion. This was treated with a subacromial decompression with a 4.0 mm barrel bur. We removed 5 to 8 mm of bone from the anterior aspect of the acromion back to a smooth surface. The bursal side of the cuff was debrided. He was seen to have a large retracted tear to the midportion of the humeral head. The greater tuberosity was debrided for repair. The anterior trocar was brought into the subacromial space for suture management. The rotator cuff tear of the supraspinatus and infraspinatus was seen to have good mobility for repair. We then proceeded with rotator cuff repair. Through an accessory lateral portal we placed 1 Mitek suture anchor double loaded with suture and suture tape. This was placed on the anterior medial aspect of the greater tuberosity for the first medial row anchor. We used the express sew suture passer to pass all 4 limbs of the suture and suture tape through the rotator cuff
--- NOTE | 2022-08-03 12:57 | P.PNANES_ITS ---
[facility] Anesthesia Record Part I Anesthesia Record I Intake, IV Amount: 1,300 Estimated blood loss (mL): 20 Urine output (mL): 0 Blood Pressure: 175/84 SaO2: 97 Pulse Rate: 93 Respiratory Rate: 16 Temperature: 97.0 F Patient is:: Drowsy Stable to PACU at:: 12:53
--- NOTE | 2022-08-03 13:30 | PC.NURSE ---
Pt experiencing frequent PAC, MARKEL Maloney at bedside, states to get EKG.
--- NOTE | 2022-08-03 13:37 | PC.NURSE ---
ekg at bedside.
--- NOTE | 2022-08-03 13:38 | ECG_ITS ---
APPROVED REPORT Exam: Resting ECG HR:99 bpm ECG Measurements Heart Rate 99 AXES NH 193 P 59 QRSd 106 QRS -13 QT 376 T 61 QTc 432 Conclusion SINUS RHYTHM WITH FREQUENT SUPRAVENTRICULAR PREMATURE COMPLEXES ABNORMAL RHYTHM ECG UNCONFIRMED REPORT Electronically signed by : Michael Ann MD 08/03/2022 18:06:44
--- NOTE | 2022-08-03 13:48 | PC.NURSE ---
EKG cleared per MARKEL Maloney and LeiLUMBER PLANER
--- NOTE | 2022-08-04 08:08 | EXP.ANES.II ---
[facility] Anesthesia Record Part II Anesthesia Record Part II Discharge Time: 13:47 Destination: Surgical Day Care (OP Surgery) PACU nurse assessment reviewed?: Yes Patient Condition:: Good Anesthesia Complications:: None Swallowing reflex intact?: Yes Cyanosis?: No Blood Pressure: 162/82 Pulse Rate: 98 Temperature: 97 F Mental Status: Alert & Oriented Pain level:: 0 Nausea and/or vomitting:: None Intake, IV Amount: 0
[2022-08-04 08:09] VITALS: BP 162/82; PULSE 98; TEMP 36.1
== END 2022-08-03 14:30 | disposition home or self-care (01) ==
PROVIDERS: PCP Internal Medicine Adolescent Medicine; Visit Provider Orthopaedic Surgery
PROC: (CPT 29805; principal; 2022-08-03 10:15)
DX: S46.012A Strain of muscle(s) and tendon(s) of the rotator cuff of left shoulder, initial encounter (principal); E11.9 Type 2 diabetes mellitus without complications; Z79.84 Long term (current) use of oral hypoglycemic drugs; I10 Essential (primary) hypertension; E78.5 Hyperlipidemia, unspecified; Z79.899 Other long term (current) drug therapy
CPT/HCPCS: 29826; 29827; 82962; 93005; 96374; C1713; J2405

== ENCOUNTER 2022-11-18 13:00 | Outpatient (RCR) | payer MEDICARE, SELFPAY ==
--- NOTE | 2022-08-25 11:59 | HMH.PTOPEV ---
PT Outpatient Evaluation Rehab PT Outpatient Evaluation Start: 08/25/22 10:07 Freq: Status: Active Protocol: Document 08/25/22 10:07 PDESEROUX (Rec: 08/25/22 11:59 [email or web address] [id number]) E-signed By Jarod Delcid, PT Outpatient Therapy Subjective History Subjective History Pt. is a 67 year old male whom presents to [facility] in [place] for the initial evaluation this date( 08/25/22) w/ c/o acute and intermittent LUE shldr. post- surgical P!, numbness, and weakness S/P LUE shldr. scope w/ RC repair on 08/03/22. Pt. reports having no P! at rest, but states P! jumps to a 6/10 w/ movement. Pt. reports being instructed to remain in sling until RTMD(09/10/22), can doff sling when bathing or sitting in a recliner per pt. report. Pt. also reports being instructed to not use the LUE nor sleep on his L side at this time. Current medications include Glimepiride, Losartan , Metformin, Omeprazole, Tamsulosin, Oxycodone, Aspirin , Atorvastatin, Cetirizine, Fluticasone, and Gabapentin. PMH includes Hyperlipidemia, Hypertension, DM-II, and GERD. Chief Complaint Pain,Spasms,Stiff,Weakness Symptom Type Ache,Sharp,Dull,Stabbing, Numbness,Shooting Symptoms Relieved By Rest/Positioning,Ice,Brace/ Support,Prescription Meds Symptoms Aggravated By Physical Activity,Lifting Prior Functional Limitations None Current Functional Limitations Reaching,Lifting,Housework, Dressing,Sleeping,Recreation Activity Symptom Description Activity Dependent Level of pain today (0-10) 0 Pain scale - at its best (0-10) 0 Pain scale - at its worst (0-10) 6 Shoulder/Elbow Eval Shoulder Objective Measurements Palpation Tenderness tenderness shoulder exam standard left tenderness over the bicipital tendon left shoulder exam standard tenderness over the SA bursa shoulder left exam standard Shoulder Palpation
== END 2022-11-23 14:26 | disposition home or self-care (01) ==
LOC: PT 13:00
PROVIDERS: PCP Internal Medicine Adolescent Medicine; Visit Provider Orthopaedic Surgery
DX: M25.512 Pain in left shoulder (principal); M75.102 Unspecified rotator cuff tear or rupture of left shoulder, not specified as traumatic
CPT/HCPCS: 97010; 97014; 97110; 97112; 97140; 97163; 97164; 97530; G0283

== ENCOUNTER → 2022-11-25 06:44 | Outpatient (CLI) | payer MEDICARE, SELFPAY ==
[2022-11-25 16:57] LABS: Chloride 97 mmol/L (98-107)
[2022-11-25 16:58] LABS: Sodium 134 mmol/L (136-145)
[2022-11-25 17:00] LABS: Alanine Aminotransferase 74 U/L (12-78); Alkaline Phosphatase 124 U/L (38-126); Aspartate Amino Transferase 58 U/L (17-59); Bilirubin,Total 0.2 mg/dl (0.2-1.3); Blood Urea Nitrogen 20 mg/dl (9-20); Estimated Glomerular Filt Rate 84 ml/min (>60); GFR (African American) 102 ML/MIN (>60)
[2022-11-25 17:01] LABS: Albumin/Globulin Ratio 1.7 (1.1-1.8); Calcium 8.7 mg/dl (8.4-10.2); Carbon Dioxide 28 mmol/L (22.0-30.0); Globulin 2.4 g/dL (1.3-3.2); Glucose 197 mg/dl (74-100); Total Protein,Serum 6.4 g/dl (6.3-8.2)
[2022-11-25 17:09] LABS: Creatinine,Urine Random 123 mg/dL (Not Estab.); Microalbumin < 6.000 mg/L (0-16.7)
[2022-11-25 17:31] LABS: Basophils % 0.5 % (0.1-2.0); Eosinophils # 0.1 K/mm3 (0.0-0.4); Eosinophils % 1.7 % (0.1-12.0); Hematocrit 41.1 % (42.0-52.0); Hemoglobin 13.2 g/dL (14.1-18.0); Lymphocytes # 1.9 K/mm3 (0.7-4.5); Lymphocytes % 23.9 % (10-50); Mean Corpuscular Hemoglobin 26.6 pg (27.0-31.2); Mean Corpuscular Volume 82.9 fl (80-94); Mean Platelet Volume 9.9 fl (7.4-10.4); Monocytes # 0.5 K/mm3 (0.1-1.0); Monocytes % 5.7 % (1.7-9.3); Neutrophils # 5.6 K/mm3 (1.8-7.8); Neutrophils % 68.3 % (37.0-80.0); Platelet Count 251 K/mm3 (142-424); Red Blood Count 4.95 M/mm3 (4.60-6.20); Red Cell Distribution Width 15.7 % (11.5-17.5); White Blood Count 8.1 K/mm3 (4.8-10.8)
[2022-11-25 17:51] LABS: Hemoglobin A1C 10.7 % (4.0-6.0)
== END ==
PROVIDERS: PCP Family Medicine; Visit Provider Family Medicine
DX: E11.9 Type 2 diabetes mellitus without complications; I10 Essential (primary) hypertension; Z79.84 Long term (current) use of oral hypoglycemic drugs
CPT/HCPCS: 80053; 82043; 82570; 83036; 85025

== ENCOUNTER → 2023-03-31 10:20 | Outpatient (CLI) | payer MEDICARE, SELFPAY ==
[2023-03-31 16:44] LABS: Basophils % 0.2 % (0.1-2.0); Eosinophils # 0.2 K/mm3 (0.0-0.4); Hemoglobin 13.1 g/dL (14.1-18.0); Lymphocytes # 1.4 K/mm3 (0.7-4.5); Lymphocytes % 20.9 % (10-50); Mean Corpuscular HGB Conc 31.1 g/dL (31.8-35.4); Mean Corpuscular Hemoglobin 26.5 pg (27.0-31.2); Mean Platelet Volume 8.8 fl (7.4-10.4); Monocytes # 0.4 K/mm3 (0.1-1.0); Monocytes % 5.5 % (1.7-9.3); Neutrophils # 4.7 K/mm3 (1.8-7.8); Neutrophils % 70.4 % (37.0-80.0); Platelet Count 253 K/mm3 (142-424); Red Blood Count 4.94 M/mm3 (4.60-6.20); White Blood Count 6.7 K/mm3 (4.8-10.8)
[2023-03-31 16:56] LABS: Creatinine,Urine Random 114 mg/dL (Not Estab.)
[2023-03-31 17:00] LABS: Alanine Aminotransferase 57 U/L (12-78); Albumin Level 4.2 g/dl (3.5-5.0); Albumin/Globulin Ratio 1.6 (1.1-1.8); Alkaline Phosphatase 95 U/L (38-126); Anion Gap 14.1 mEq/L (5-15); Aspartate Amino Transferase 53 U/L (17-59); Bilirubin,Total 0.4 mg/dl (0.2-1.3); Blood Urea Nitrogen 21 mg/dl (9-20); Calcium 8.5 mg/dl (8.4-10.2); Carbon Dioxide 28 mmol/L (22.0-30.0); Chloride 103 mmol/L (98-107); Chol/HDL Ratio 3.5 (1-3.5); Cholesterol 144 mg/dl (140-200); Estimated Glomerular Filt Rate 84 ml/min (>60); GFR (African American) 102 ML/MIN (>60); Globulin 2.6 g/dL (1.3-3.2); Glucose 129 mg/dl (74-100); HDL Cholesterol 41 mg/dl (40-60); Potassium 4.1 mmoL/L (3.5-5.1); Sodium 141 mmol/L (136-145); Total Protein,Serum 6.8 g/dl (6.3-8.2); Triglycerides 89 mg/dl (30-150); VLDL Cholesterol 18 mg/dL (0-40)
[2023-03-31 17:22] LABS: Hemoglobin A1C 8.3 % (4.0-6.0)
== END ==
PROVIDERS: PCP Family Medicine; Visit Provider Family Medicine
DX: E11.9 Type 2 diabetes mellitus without complications (principal); E78.5 Hyperlipidemia, unspecified; I10 Essential (primary) hypertension; N32.81 Overactive bladder; G89.29 Other chronic pain; M25.561 Pain in right knee; Z79.84 Long term (current) use of oral hypoglycemic drugs
CPT/HCPCS: 80053; 80061; 82043; 82570; 83036; 85025

== ENCOUNTER → 2023-08-25 10:40 | Outpatient (CLI) | payer MEDICARE, SELFPAY ==
[2023-08-25 18:01] LABS: Hemoglobin A1C 9.2 % (4.0-6.0)
== END ==
PROVIDERS: PCP Family Medicine; Visit Provider Family Medicine
DX: E11.9 Type 2 diabetes mellitus without complications (principal); Z79.84 Long term (current) use of oral hypoglycemic drugs
CPT/HCPCS: 83036

== ENCOUNTER 2023-08-29 00:24 | Emergency (ER) | payer MEDICARE, SELFPAY ==
[2023-08-29 00:25] VITALS: BP 168/97; PULSE 107; RESP 16; TEMP 36.5; O2SAT 97; BMI 34.0
--- NOTE | 2023-08-29 00:34 | HMH.EDGENADL ---
Discharge Plan Disposition Patient Disposition: Home, Self-Care Condition: Good Prescriptions Prescriptions: New doxycycline hyclate 100 mg tablet 100 mg PO BID 7 Days Qty: 14 0RF No Action cyclobenzaprine 5 mg tablet 5 mg PO TID PRN (Reason: muscle spasm) Qty: 30 2RF tamsulosin 0.4 mg capsule 0.4 - 0.8 mg PO DAILY Qty: 180 1RF atorvastatin 80 mg tablet 80 mg PO DAILY Qty: 90 1RF gabapentin 100 mg capsule 100 mg PO DAILY Qty: 90 1RF losartan-hydrochlorothiazide 100-25 mg tablet 1 tab PO DAILY Qty: 90 1RF metformin 1,000 mg tablet 1,000 mg PO BID 90 Days Qty: 180 1RF omeprazole 40 mg capsule,delayed release(DR/EC) 40 mg PO DAILY Qty: 90 1RF aspirin 81 mg tablet,delayed release (DR/EC) 81 mg PO DAILY Patient Comments: TAKE ONE TABLET BY MOUTH EVERY DAY fluticasone propionate [Flonase Allergy Relief] 50 mcg/actuation spray,suspension 1 spray NS DAILY Rx Instructions: administer into each nostril magnesium 250 mg tablet 500 mg PO DAILY glimepiride 2 mg tablet 2 mg PO BID 90 Days Qty: 180 0RF Rx Instructions: 4mg AM and 2mg QHS. DOSE CHANGE OF 08/26/23 cetirizine 10 mg tablet 10 mg PO DAILY Referrals Follow up/Referrals: Jose Cifuentes MD [Primary Care Provider] - See instructions Clinical Impressions Clinical Impression: Bitten by rat Instructions Patient Instructions: Animal Bites Discharge ED Provider: Anastasiia Mcneill General Adult HPI General Chief complaint: Animal Bite Stated complaint: AO 08/29/23 0000 bit by rat Time Seen by Provider: 08/29/23 00:34 History of Present Illness HPI narrative: Patient has a PMHx significant for hypertension, diabetes, hyperlipidemia who presents to the ED with complaints of right eye. Patient notes that he finally captured a rat that was running around his house. Patient notes that the rat was stuck on a sticky pad and when he went to grab it, the rat bite him on L index finger. Patient notes bleeding, but it was controlled. Nut up to date on TDAP. Related Data Home Medications Medication Instructions Recorded Confirmed aspirin 81 mg tablet,delayed 81 mg PO DAILY heart health 03/25/22 08/25/23 release fluticasone propionate 50 1 spray intranasal DAILY Allergy 03/25/22 08/25/23 mcg/actuation nasal symptoms spray,suspension (Flonase Allergy Relief) cetirizine 10 mg tablet 10 mg PO DAILY Allergy symptoms 06/04/22 08/25/23 magnesium 250 mg tablet 500 mg PO DAILY 08/25/23 08/25/23 Previous Rx's Medication Instructions Recorded atorvastatin 80 mg tablet 80 mg PO DAILY Cholesterol #90 tabs 04/01/23 cyclobenzaprine 5 mg tablet 5 mg PO TID PRN muscle spasm #30 04/01/23 tabs gabapentin 100 mg capsule 100 mg PO DAILY Pain #90 caps 04/01/23 losartan 100 1 tab PO DAILY High blood pressure 04/01/23 mg-hydrochlorothiazide 25 mg tablet #90 tabs metformin 1,000 mg tablet 1,000 mg PO BID Diabetes 90 days 04/01/23 #180 tabs omeprazole 40 mg capsule,delayed 40 mg PO DAILY GERD #90 caps 04/01/23 release tamsulosin 0.4 mg capsule 0.4 - 0.8 mg PO DAILY urine flow 04/01/23 #180 caps glimepiride 2 mg tablet 2 mg PO BID Diabetes 90 days #180 08/26/23 tabs doxycycline hyclate 100 mg tablet 100 mg PO BID 7 days #14 tabs 08/29/23 Allergies Allergy/AdvReac Type Severity Reaction Status Date / Time Penicillins Allergy Verified 08/25/23 09:03 [facility] Disclaimer: The information contained in this section may have been updated after the patient was seen, as this information can be updated by other users. Medical History Allergies Aneurysm Diabetes mellitus, type 2 History of cataract History of gastroesophageal reflux (GERD) Hyperlipidemia Hypertension Osteoarthritis Overactive bladder Sleep apnea Surgical History History of col
[2023-08-29 00:57] VITALS: BP 167/87; PULSE 70; RESP 18; TEMP 36.5; O2SAT 98
== END 2023-08-29 00:58 | disposition home or self-care (01) ==
LOC: ER 00:48
PROVIDERS: Emergency Provider Emergency Medicine; PCP Family Medicine
DX: S61.251A Open bite of left index finger without damage to nail, initial encounter (principal); E11.9 Type 2 diabetes mellitus without complications; E78.5 Hyperlipidemia, unspecified; I10 Essential (primary) hypertension; G47.30 Sleep apnea, unspecified; W53.11XA Bitten by rat, initial encounter
CPT/HCPCS: 90471; 90714; 99283

== ENCOUNTER 2023-12-08 17:06 | Outpatient (CLI) | payer MEDICARE, SELFPAY ==
[2023-12-08 17:47] LABS: Basophils % 0.7 % (0.1-2.0); Eosinophils # 0.1 K/mm3 (0.0-0.4); Eosinophils % 2.1 % (0.1-12.0); Hematocrit 41.3 % (42.0-52.0); Hemoglobin 13.2 g/dL (14.1-18.0); Lymphocytes # 1.6 K/mm3 (0.7-4.5); Lymphocytes % 28.8 % (10-50); Mean Corpuscular Hemoglobin 28.5 pg (27.0-31.2); Mean Corpuscular Volume 89.1 fl (80-94); Mean Platelet Volume 10.3 fl (7.4-10.4); Monocytes # 0.3 K/mm3 (0.1-1.0); Monocytes % 6.1 % (1.7-9.3); Neutrophils # 3.5 K/mm3 (1.8-7.8); Neutrophils % 62.3 % (37.0-80.0); Platelet Count 187 K/mm3 (142-424); Red Blood Count 4.64 M/mm3 (4.60-6.20); Red Cell Distribution Width 14.3 % (11.5-17.5); White Blood Count 5.6 K/mm3 (4.8-10.8)
[2023-12-08 18:11] LABS: Alanine Aminotransferase 70 U/L (12-78); Albumin/Globulin Ratio 1.7 (1.1-1.8); Alkaline Phosphatase 114 U/L (38-126); Anion Gap 14.6 mEq/L (5-15); Aspartate Amino Transferase 43 U/L (17-59); Bilirubin,Total 0.5 mg/dl (0.2-1.3); Blood Urea Nitrogen 14 mg/dl (9-20); Calcium 9.2 mg/dl (8.4-10.2); Carbon Dioxide 27 mmol/L (22.0-30.0); Chloride 99 mmol/L (98-107); Chol/HDL Ratio 4.5 (1-3.5); Cholesterol 140 mg/dl (140-200); Estimated Glomerular Filt Rate 84 ml/min (>60); GFR (African American) 102 ML/MIN (>60); Globulin 2.4 g/dL (1.3-3.2); Glucose 236 mg/dl (74-100); HDL Cholesterol 31 mg/dl (40-60); Potassium 3.6 mmoL/L (3.5-5.1); Sodium 137 mmol/L (136-145); Total Protein,Serum 6.4 g/dl (6.3-8.2); Triglycerides 94 mg/dl (30-150); VLDL Cholesterol 19 mg/dL (0-40)
[2023-12-08 18:17] LABS: Creatinine,Urine Random 112 mg/dL (Not Estab.)
[2023-12-08 18:22] LABS: Direct LDL Cholesterol 85.41 mg/dL (100-129)
[2023-12-08 18:27] LABS: Microalbumin < 6.000 mg/L (0-16.7)
[2023-12-08 19:03] LABS: Hemoglobin A1C 12.3 % (4.0-6.0)
== END 2023-12-08 23:59 ==
LOC: LAB.DROPOF 17:06
PROVIDERS: PCP Family Medicine; Visit Provider Family Medicine
DX: E11.9 Type 2 diabetes mellitus without complications (principal); E78.5 Hyperlipidemia, unspecified; I10 Essential (primary) hypertension; Z79.84 Long term (current) use of oral hypoglycemic drugs
CPT/HCPCS: 80053; 80061; 82043; 82570; 83036; 85025

== ENCOUNTER 2024-03-06 09:24 | Outpatient (CLI) | payer MEDICARE, SELFPAY ==
[2024-03-06 17:00] LABS: Hemoglobin A1C 8.5 % (4.0-6.0)
== END 2024-03-06 23:59 | disposition home or self-care (01) ==
LOC: LAB.DROPOF 03-07 09:25
PROVIDERS: PCP Family Medicine; Visit Provider Family Medicine
DX: E11.9 Type 2 diabetes mellitus without complications (principal); Z79.4 Long term (current) use of insulin
CPT/HCPCS: 83036

== ENCOUNTER 2024-05-09 08:14 | Outpatient (CLI) | payer MEDICARE, SELFPAY ==
--- NOTE | 2024-05-09 08:17 | US_ITS ---
FINAL REPORT CLINICAL HISTORY: RUQ pain FINDINGS: RIGHT UPPER QUADRANT ULTRASOUND Sonographic images of the right upper quadrant were obtained. The pancreas is obscured. There is fatty infiltration of the liver. The gallbladder appears normal without evidence of gallstones.The common duct measures 4 mm. There is a right pelvic kidney with lobular contour, may represent scarring. IMPRESSION: Fatty liver. Reviewed, Interpreted and Dictated by Lai Hedrick III, MD Transcribed by Aleyda Holt Authenticated and . [facility]
== END 2024-05-09 23:59 | disposition home or self-care (01) ==
LOC: RAD 08:14
PROVIDERS: PCP Family Medicine; Visit Provider Family Medicine
DX: R10.11 Right upper quadrant pain (principal)
CPT/HCPCS: 76705

== ENCOUNTER 2024-05-15 07:45 | Outpatient (CLI) | payer MEDICARE, SELFPAY ==
[2024-05-15 08:33] LABS: Basophils # 0.1 K/mm3 (0-0.2); Basophils % 0.7 % (0.1-2.0); Eosinophils # 0.2 K/mm3 (0.0-0.4); Eosinophils % 2.3 % (0.1-12.0); Hematocrit 42.1 % (42.0-52.0); Hemoglobin 13.5 g/dL (14.1-18.0); Lymphocytes # 1.6 K/mm3 (0.7-4.5); Mean Corpuscular Hemoglobin 28.2 pg (27.0-31.2); Mean Platelet Volume 9.1 fl (7.4-10.4); Monocytes # 0.3 K/mm3 (0.1-1.0); Monocytes % 4.7 % (1.7-9.3); Neutrophils # 4.9 K/mm3 (1.8-7.8); Neutrophils % 69.4 % (37.0-80.0); Platelet Count 220 K/mm3 (142-424); Red Blood Count 4.78 M/mm3 (4.60-6.20); Red Cell Distribution Width 14.5 % (11.5-17.5); White Blood Count 7.1 K/mm3 (4.8-10.8)
[2024-05-15 09:27] LABS: Alanine Aminotransferase 40 U/L (12-78); Albumin Level 3.9 g/dl (3.5-5.0); Albumin/Globulin Ratio 1.4 (1.1-1.8); Alkaline Phosphatase 94 U/L (38-126); Amylase 78 U/L (30-110); Anion Gap 11.2 mEq/L (5-15); Aspartate Amino Transferase 28 U/L (17-59); Bilirubin,Total 0.4 mg/dl (0.2-1.3); Blood Urea Nitrogen 18 mg/dl (9-20); Calcium 9.4 mg/dl (8.4-10.2); Carbon Dioxide 30 mmol/L (22.0-30.0); Chloride 101 mmol/L (98-107); Estimated Glomerular Filt Rate 84 ml/min (>60); GFR (African American) 102 ML/MIN (>60); Globulin 2.8 g/dL (1.3-3.2); Glucose 160 mg/dl (74-100); Lipase 114 U/L (23-300); Potassium 4.2 mmoL/L (3.5-5.1); Sodium 138 mmol/L (136-145); Total Protein,Serum 6.7 g/dl (6.3-8.2)
== END 2024-05-15 23:59 | disposition home or self-care (01) ==
LOC: LAB 07:46
PROVIDERS: PCP Family Medicine; Visit Provider Surgery
DX: R10.11 Right upper quadrant pain (principal)
CPT/HCPCS: 36415; 80053; 82150; 83690; 85025

== ENCOUNTER 2024-05-18 12:02 | Outpatient (CLI) | payer MEDICARE, SELFPAY ==
--- NOTE | 2024-05-18 12:03 | NM_ITS ---
FINAL REPORT CLINICAL HISTORY: Nausea COMPARISON: None FINDINGS: Sequential anterior projection images of the abdomen were obtained after the intravenous injection of 8.08 mCi technetium 99m Choletec. There is normal uptake of radiotracer by the liver. The bile ducts are visualized by 10 minutes. Gallbladder activity is seen by 10 minutes. Bowel activity is noted by 45 minutes. After 1 hour, 2.1 ?g of CCK was injected intravenously for calculation of gallbladder ejection fraction. The gallbladder ejection fraction is 84%, which is within normal limits. IMPRESSION: No evidence of cystic duct or bile duct obstruction. Normal gallbladder ejection fraction of 84%. Reviewed, Interpreted and Dictated by Silviano Ruth MD Transcribed by Sandi Meadows Authenticated and [facility]
[2024-05-18] MEDS: SODIUM CHLORIDE 0.9% 10ML SYR (RAD ONLY) 10 ML IV (12:50)
[2024-05-18] MEDS: SINCALIDE 2.1 MCG in 0.9 % SODIUM CHLORIDE 50 ML 100 MCG IV (13:50)
[2024-05-18] MEDS: ISOTOPE CHOLETECH;1 DOSE (UP TO 15 MCI) IV (14:41)
== END 2024-05-18 23:59 | disposition home or self-care (01) ==
LOC: RAD 12:03
PROVIDERS: PCP Family Medicine; Visit Provider Surgery
DX: R10.11 Right upper quadrant pain (principal)
CPT/HCPCS: 78227; A9537; J2805

== ENCOUNTER 2024-07-03 12:33 | Outpatient (CLI) | payer MEDICARE, SELFPAY ==
--- NOTE | 2024-07-03 12:40 | XR_ITS ---
FINAL REPORT CLINICAL HISTORY: right shoulder pain COMPARISON: None FINDINGS: RIGHT SHOULDER Two views demonstrate no acute fracture or dislocation. There is mild degenerative change. The visualized bony structures are well aligned. No soft tissue abnormality is seen. IMPRESSION: Mild degenerative change without acute bony abnormality. Reviewed, Interpreted and Dictated by Lai Hedrick III, MD Transcribed by Tanya Davison Authenticated and [facility]
== END 2024-07-03 23:59 | disposition home or self-care (01) ==
LOC: RAD 12:34
PROVIDERS: PCP Family Medicine; Visit Provider Orthopaedic Surgery
DX: M25.511 Pain in right shoulder (principal)
CPT/HCPCS: 73030

== ENCOUNTER 2024-08-03 09:50 | Day surgery (SDC) | payer MEDICARE, SELFPAY ==
[2024-08-01 16:30] VITALS: BMI 34.0
[2024-08-03 10:24] VITALS: BP 142/65; PULSE 95; RESP 18; TEMP 36.2; O2SAT 98
[2024-08-03 10:34] LABS: POC Glucose,Bedside 102 (70-110)
[2024-08-03] MEDS: 0.9 % SODIUM CHLORIDE 1000ML 1,000 ML 100 ML IV (10:38)
--- NOTE | 2024-08-03 11:47 | P.PNANES_ITS ---
[facility] Disclaimer: The information contained in this section may have been updated after the patient was seen, as this information can be updated by other users. Medical History History of colon polyps Sleep apnea Overactive bladder Osteoarthritis History of gastroesophageal reflux (GERD) History of cataract Diabetes mellitus, type 2 Allergies Aneurysm Hyperlipidemia Hypertension Surgical History History of cataract surgery History of left shoulder replacement History of colonoscopy Family History Other Family history of diabetes mellitus type II Social History Smoking Status: Unknown if ever smoked alcohol intake: never substance use type: denies use current occupational status: retired Travel in the last 8 weeks: None household members: spouse caffeine: Yes [facility] Anesthesia Checklist Patient Identification Patient Identification: Verbal (Name & ) Structural Data Admitted From: Home Planned Operative Procedure/s: colonoscopy Additional verifications Anesthesia Reactions: No Hx Blood Transfusions: No Blood Transfusion Reaction: No Airway Assessment Mallampati Score:: Class IV C-Spine Mobility Assessed: Yes TMJ Mobility Assessed: Yes Dentition: Good Dentition (missing front l incisor) Neurological Assessment Level of Consciousness: Awake, Alert and Appropriate Anesthesia Plan Anesthesia Risk discussed: Yes Anesthesia Plan: Verified ASA Class: II Anesthesia Type: MAC
--- NOTE | 2024-08-03 12:03 | P.PCN_ITS ---
Procedure: Date: 08/03/24 Patient Date of :: 1955 Procedure Performed:: Esophagogastroduodenoscopy with biopsies Total colonoscopy with polypectomy using snare . Indications:: Patient is a 69-year-old male from [facility] who presents for colonoscopy. He had undergone colonoscopy on 08/03/[address] Marshall Blank at which time he had 7 polyps removed. 5-year follow-up colonoscopy was recomme nded. I did perform colonoscopy on 06/04/2022 at which time he had 6 polyps removed 5 of which were tubular adenomas. 2-year follow-up colonoscopy recommended. Of note, the patient had recently seen Dr. Martin in the office for symptoms of burning pain along the right mid upper abdomen and flank. Gallbladder workup was negative. Apparently there is a suggestion from Dr. Martin and Dr. Cifuentes for possible upper endoscopy. He describes the burning pain in the right mid upper abdomen. There are no exacerbating or alleviating factors. No GI symptoms. No relation to food intake. He has not had any symptoms for 3 weeks. Therefore, given the previous history of right upper quadrant pain with negative gallbladder workup plan was made to proceed with upper endoscopy for biopsies as well as colonoscopy due to history of polyps. . Performing Provider:: Lai Cortez MD Referring Provider:: Jose Cifuentes MD Sedation:: MAC sedation Procedure:: Patient history was obtained and appropriate physical examination was performed. Patient's medications and allergies were reviewed. Informed consent was obtained after explaining the benefits, alternatives, and risks of the procedure including, but not limited to, bleeding, perforation, missed lesions, and adverse reaction to anesthesia medications. Patient was transported to endoscopy procedure room. Patient was connected to monitoring devices. Throughout the procedure the patient's blood pressure, pulse, and oxygen saturations were monitored continuously. Patient identification and planned procedure were verified by the staff. Patient was positioned in lateral decubitus position. Attention was first turned to upper endoscopy. Olympus endoscope was inserted via the oropharynx. Esophagus was cannulated. Endoscope was advanced. There was some minor tortuosity consistent with mild esophageal dysmotility. Gastroesophageal junction was encountered at 35 cm. Stomach was cannulated. There was a small sliding hiatal hernia. There is some diffuse gastropathy and several polyps consistent with fundic gland polyps. Gastric biopsies were obtained. Biopsy was obtained of the polyp for confirmation of fundic gland polyp. Pylorus was traversed. Duodenum appeared normal. Endoscope was withdrawn to the distal esophagus and biopsies were obtained at the gastroesophageal junction. Endoscope was withdrawn. Next attention was turned to colonoscopy. Digital anorectal exam was performed. Patient was found to have notable anal stenosis. Variable stiffness Olympus colonoscope was inserted and advanced under direct visualization to the cecum. There was some redundancy and floppiness of the colon requiring abdominal pressure for advancement of the colonoscope. Adequacy of the colonic preparation was noted. Colonic preparation was fair as there was some particulate pasty opaque stool and undigested medication mostly in the right colon. This was able to be mostly cleared with high-volume trans colonoscopic irrigation and suctioning. The colonoscope was then slowly withdrawn while carefully examining the color, texture, anatomy, and integrity of the mucosoa circumferentially. In the cecum there was a tiny diminutive polyp which was removed in its entirety with cold cutting snare. However, with repeated insertion and withdrawal of the colonoscope within inspection in the cecum this was unable to be retrieved due to the large amount of particulate stool and matter in the colon. In the ascending colon there is a small polyp removed with cold cutting snare. The proximal transverse colon just distal to the hepatic flexure there is a polyp removed with cold snare. In the distal sigmoid colon there was a probable hyperplastic appearing polyp removed with cold snare. Within the rectum retroflexion was performed. Colonoscope was then withdrawn. . Findings:: * Possible mild esophageal dysmotility * Gastroesophageal junction at 35 cm * Small hiatal hernia * Diffuse gastropathy * Probable gastric fundic gland polyps * Anal stenosis * Fair preparation despite high-volume trans colonoscopic irrigation and suctioning * Cecal polyp, tiny, diminutive, removed in its entirety but unable to be retrieved * Ascending colon polyp * Proximal transverse colon polyp distal sigmoid colon polyp, likely hyperplastic. . Recommendations:: No obvious etiology for burning right upper quadrant pain on upper endoscopy. Given the prior history of polyps with several adenomatous polyps on his colonoscopy with suboptimal prep likely repeat colonoscopy 2 years with actual multi day maximum prep Complications:: None immediately apparent Estimated blood obtained (mL): 2 Colonoscopy Component Colonoscopy Component Was a colonoscopy performed during today's procedure?: Yes Recommended follow up colonoscopy of at least 10 years?: No If no, follow up colonoscopy recommended in ___ years?: 2 Reason for not recommending >/= 10 yr follow-up interval?: See above
[2024-08-03 13:28] VITALS: BP 93/54; PULSE 81; RESP 14; TEMP 36.1; O2SAT 94
[2024-08-03 13:38] VITALS: BP 97/56; PULSE 84; RESP 16; O2SAT 94
[2024-08-03 13:48] VITALS: BP 101/61; PULSE 82; RESP 18; O2SAT 95
[2024-08-03 13:58] VITALS: BP 106/66; PULSE 80; RESP 16; O2SAT 95
== END 2024-08-03 14:00 | disposition home or self-care (01) ==
PROVIDERS: PCP Family Medicine; Visit Provider Surgery
PROC: 0DJD8ZZ Inspection of Lower Intestinal Tract, Via Natural or Artificial Opening Endoscopic (ICD-10-PCS; CPT 43239; principal; 2024-08-03 11:30)
DX: K22.4 Dyskinesia of esophagus (principal); K44.9 Diaphragmatic hernia without obstruction or gangrene; K31.9 Disease of stomach and duodenum, unspecified; K31.7 Polyp of stomach and duodenum; K62.4 Stenosis of anus and rectum; K63.5 Polyp of colon; Z09 Encounter for follow-up examination after completed treatment for conditions other than malignant neoplasm; Z86.0100 Personal history of colon polyps, unspecified; E11.8 Type 2 diabetes mellitus with unspecified complications; Z79.4 Long term (current) use of insulin; Z79.84 Long term (current) use of oral hypoglycemic drugs
CPT/HCPCS: 43239; 45385; 82962; J2704; J7030

== ENCOUNTER 2024-09-03 16:07 | Outpatient (CLI) | payer MEDICARE, SELFPAY ==
--- NOTE | 2024-09-03 16:10 | XR_ITS ---
PROCEDURE INFORMATION: Exam: XR Right Knee Exam date and time: 09/03/2024 4:12 PM Age: 69 years old Clinical indication: Pain; Knee; Right; Additional info: Knee pain TECHNIQUE: Imaging protocol: Radiologic exam of the right knee. Views: 3 views. COMPARISON: CR XR KNEE RT 3V 08/25/2021 4:08 PM FINDINGS: Bones/joints: There is no evidence of acute fracture or dislocation. There is moderate narrowing of the medial femorotibial joint space. There is mild subchondral sclerosis of the articular surfaces. Remaining joint spaces appear preserved. There is mild sharpening of the tibial spines and mild spurring of the superior patella. There is a subchondral ovoid lucency measuring approximately 18 mm involving the lateral aspect of the medial femoral condyle suggestive of osteochondral defect/fracture, more prominent than prior study. Soft tissues: No significant soft tissue edema. No subcutaneous emphysema or radiopaque foreign bodies. No joint effusion. IMPRESSION: 1. No acute posttraumatic osseous injury. 2. Subchondral ovoid lucency involving the lateral aspect of the medial femoral condyle suggestive of osteochondral fracture, more prominent than prior study. Recommend orthopedic consultation. 3. Mild to moderate osteoarthritis with moderate narrowing of the medial femorotibial joint space.
== END 2024-09-03 23:59 | disposition home or self-care (01) ==
LOC: RAD 16:08
PROVIDERS: PCP Family Medicine; Visit Provider Orthopaedic Surgery
DX: M25.561 Pain in right knee (principal); G89.29 Other chronic pain
CPT/HCPCS: 73562

== ENCOUNTER 2025-02-13 13:37 | Outpatient (CLI) | payer MEDICARE, SELFPAY ==
[2025-02-13 17:46] LABS: Basophils % 0.4 % (0.1-2.0); Eosinophils # 0.1 Kmm3 (0.0-0.4); Eosinophils % 1.4 % (0.1-12.0); Hematocrit 39.1 % (42.0-52.0); Hemoglobin 12.5 g/dL (14.1-18.0); Immature Granulocytes # 0.03 10^3uL; Immature Granulocytes % 0.4 %; Lymphocytes # 2.2 K/mm3 (0.7-4.5); Lymphocytes % 25.3 % (10-50); Mean Corpuscular Hemoglobin 26.9 pg (27.0-31.2); Mean Corpuscular Volume 84.3 fl (80-94); Mean Platelet Volume 11.1 fl (7.4-10.4); Monocytes # 0.6 K/mm3 (0.1-1.0); Monocytes % 6.6 % (1.7-9.3); Neutrophils # 5.6 K/mm3 (1.8-7.8); Neutrophils % 65.9 % (37.0-80.0); Nucleated Red Blood Cells # 0 10^3/uL; Nucleated Red Blood Cells % 0 %; Platelet Count 200 K/mm3 (142-424); Red Blood Count 4.64 M/mm3 (4.60-6.20); Red Cell Distribution Width 13.7 % (11.5-17.5); Red Cell Distribution Width-SD 42.1 fL; White Blood Count 8.5 K/mm3 (4.8-10.8)
[2025-02-13 18:32] LABS: Creatinine,Urine Random 32 mg/dL (Not Estab.); Hemoglobin A1C 7.8 % (4.0-6.0)
[2025-02-13 18:40] LABS: Microalbumin < 6.000 mg/L (0-16.7)
[2025-02-13 19:14] LABS: Albumin Level 4.2 g/dl (3.5-5.0); Chloride 99 mmol/L (98-107); Potassium 3.6 mmoL/L (3.5-5.1); Sodium 137 mmol/L (136-145)
[2025-02-13 19:17] LABS: Alanine Aminotransferase 53 U/L (12-78); Albumin/Globulin Ratio 1.8 (1.1-1.8); Alkaline Phosphatase 87 U/L (38-126); Anion Gap 12.6 mEq/L (5-15); Aspartate Amino Transferase 35 U/L (17-59); Bilirubin,Total 0.4 mg/dl (0.2-1.3); Blood Urea Nitrogen 11 mg/dl (9-20); Calcium 8.8 mg/dl (8.4-10.2); Carbon Dioxide 29 mmol/L (22.0-30.0); Cholesterol 126 mg/dl (140-200); Estimated Glomerular Filt Rate 84 ml/min (>60); GFR (African American) 101 ML/MIN (>60); Globulin 2.3 g/dL (1.3-3.2); Total Protein,Serum 6.5 g/dl (6.3-8.2); Triglycerides 111 mg/dl (30-150); VLDL Cholesterol 22 mg/dL (0-40)
[2025-02-13 19:18] LABS: Chol/HDL Ratio 3.5 (1-3.5); HDL Cholesterol 36 mg/dl (40-60)
[2025-02-13 19:28] LABS: Direct LDL Cholesterol 66.81 mg/dL (100-129)
[2025-02-13 19:33] LABS: 25-OH Vitamin D, Total 21.3 ng/mL (30-100)
[2025-02-13 19:52] LABS: Thyroid Stimulating Hormone 3.68 uIU/mL (0.465-4.68)
[2025-02-13 20:01] LABS: Glucose 46 mg/dl (74-100)
[2025-02-13 20:02] LABS: HIV Combo NEGATIVE (Negative)
[2025-02-13 20:09] LABS: Hepatitis C Ab Qual. W/ RFX NEGATIVE (Negative)
== END 2025-02-13 23:59 | disposition home or self-care (01) ==
LOC: LAB.DROPOF 23:06
PROVIDERS: PCP Family Medicine; Visit Provider Family Medicine
DX: E11.9 Type 2 diabetes mellitus without complications (principal); Z11.59 Encounter for screening for other viral diseases
CPT/HCPCS: 80053; 80061; 80074; 82043; 82306; 82570; 83036; 84443; 85025; 87389

== ENCOUNTER 2025-07-17 00:55 | Emergency (ER) | payer MEDICARE, SELFPAY ==
--- OUTSIDE RECORDS SUMMARY | 2024-12-29 17:30 | XMS_ITS ---
Author Organization [facility] Address [address] [place] [address] Care Team Providers Care White Mixing Operator Name Role Phone Michael Ann Primary Care Provider [phone] Migration, Provider Unavailable Unavailable Allergies Allergen (clinical drug ingredient) Drug/Non Drug Allergy documented on EMR Reaction Allergy Type Onset Date Status Penicillin parents allergic, has never had Drug Allergy Active REASON FOR VISIT [facility] Conversion Encounter Medications Medication SIG (Take, Route, Frequency, Duration) Notes Start Date End Date Status Promethazine-DM 6.25-15 MG/5ML 5 mL orally every 6 hours; Duration: 5 days 12/11/2022 Active metFORMIN HCl 1000 MG 1 tab(s) orally 2 times a day; Duration: 90 days Active Doxycycline Monohydrate 100 MG 1 tab(s) orally 2 times a day; Duration: 10 day(s) 12/11/2022 Active Omeprazole 40 MG TAKE ONE CAPSULE BY MOUTH EVERY DAY; Duration: 30 Active Atorvastatin Calcium 80 MG 1 tab(s) oral ly once a day at bedtime; Duration: 30 days Active Losartan Potassium 100 MG 1 tab(s) orall y once a day; Duration: 30 Active Tamsulosin HCl 0.4 MG 1 cap(s) orally on ce a day; Duration: 30 Active Aspirin Low Dose 81 MG TAKE ONE TABLET B Y MOUTH EVERY DAY; Duration: 30 days Active Glimepiride 2 MG 1 tab(s) orally twic e daily; Duration: 30 days Active Ibuprofen 800 MG 1 tab(s) orally 3 ti mes a day for one week, then tid prn; Duration: 30 day(s) Active Gabapentin 100 MG 1 cap(s) orally at n ight; Duration: 90 day(s) 10/07/2023 Active Cetirizine HCl 10 MG 1 tab(s) orally onc e a day; Duration: 90 days Active Flonase Allergy Relief 50 MCG/ACT 1 spray(s) intranasally once a day; Duration: 30 days 06/09/2019 Active Encounters Encounter Location Date Provider Diagnosis [place] [facility] [address] [facility] [address] [place] [address] 12/29/2024 Provider Migration Acute bronchopneumonia J18.0 Assessments Encounter Date Diagnosis (ICD Code) Assessment Notes Treatment Notes Treatment Clinical Notes Section Notes 12/29/2024 Acute bronchopneumonia (ICD-10 - J18.0) Plan Of Treatment Medication Medication Name Sig Start Date Stop Date Notes Promethazine-DM 6.25-15 MG/5ML 5 mL oral ly every 6 hours; Duration: 5 days 12/11/2022 metFORMIN HCl 1000 MG 1 tab(s) orally 2 times a day; Duration: 90 days Doxycycline Monohydrate 100 MG 1 tab(s) orally 2 times a day; Duration: 10 day(s) 12/11/2022 Omeprazole 40 MG TAKE ONE CAPSULE BY MOUTH EVERY DAY; Duration: 30 Atorvastatin Calcium 80 MG 1 tab(s) oral ly once a day at bedtime; Duration: 30 days Aspirin Low Dose 81 MG TAKE ONE TABLET B Y MOUTH EVERY DAY; Duration: 30 days Gabapentin 100 MG 1 cap(s) orally at n ight; Duration: 90 day(s) 10/07/2023 Cetirizine HCl 10 MG 1 tab(s) orally onc e a day; Duration: 90 days Progress Notes * Lai MANUEL ADOB: (70 yo M)Acc No.[id number]:12/29/2024 Patient: Lai BURK Provider: Karina Liz :1955 A ge:69 Y S ex:Male Date:12/29/2024 Address:[address] [place], [place] [id number] Pcp:Michael Ann Subjective: * Chief Complaints: * 1 . [facility] To [facility] Conversion Encounter. * Medical History: * Medications: T aking Flonase Allergy Relief 50 MCG/ACT Suspension 1 spray(s) intranasally once a day , Taking Ibuprofen 800 MG Tablet 1 tab(s) orally 3 times a day for one week, then tid prn , Taking Losartan Potassium 100 MG Tablet 1 tab(s) orally once a day , Taking Tamsulosin HCl 0.4 MG Capsule 1 cap(s) orally once a day , Taking Glimepiride 2 MG Tablet 1 tab(s) orally twice daily * Allergies: P enicillin: parents allergic, has never had. Objective: * Vitals: Assessment: * Assessment: 1. A cute bronchopneumonia - J18.0 (Primary) Plan: * Treatment: 2. O thers Start Omeprazole Capsule Delayed Release, 40 MG, TAKE ONE CAPSULE BY MOUTH EVERY DAY, 30, 30 Capsule, Refills 4; S tart metFORMIN HCl Tablet, 1000 MG, 1 tab(s), orally, 2 times a day, 90 days, 180 Tablet, Refills 3; S tart Cetirizine HCl Tablet, 10 MG, 1 tab(s), orally, once a day, 90 days, 90 Tablet, Refills 3; S tart Gabapentin Capsule, 100 MG, 1 cap(s), orally, at night, 90 day(s), 90, Refills 2; S tart Atorvastatin Calcium Tablet, 80 MG, 1 tab(s), orally, once a day at bedtime, 30 days, 30, Refills 0; S tart Aspirin Low Dose Tablet Delayed Release, 81 MG, TAKE ONE TABLET BY MOUTH EVERY DAY, 30 days, 30 Tablet, Refills 3. * * Electronic signature of Prov ider Migration on 07/17/2025 at 01:06 AM EDT Sign off status: Pending * Provider: Karina oneill Migration Date: 0 12/29/2024 Generated for Elaine gill/Sabrina/Adina on: 01:06 AM EDT
--- NOTE | 2025-07-17 01:01 | ED_ITS ---
Discharge Plan Disposition Patient Disposition: Home, Self-Care Prescriptions Prescriptions: No Action acyclovir 800 mg tablet 800 mg PO 5XD Qty: 50 0RF Rx Instructions: space evenly during waking hours metformin 500 mg tablet extended release 24 hr 500 mg PO DAILY Qty: 30 2RF fluticasone propionate [Flonase Allergy Relief] 50 mcg/actuation spray,suspension 1 spray NS DAILY Rx Instructions: administer into each nostril cetirizine 10 mg tablet 10 mg PO DAILY Qty: 90 3RF tamsulosin 0.4 mg capsule See Rx Instructions .ROUTE .COMPLEX Qty: 180 2RF Dose Instruction: TAKE TWO CAPSULES BY MOUTH EVERY DAY FOR urine flow Rx Instructions: TAKE TWO CAPSULES BY MOUTH EVERY DAY FOR urine flow aspirin 81 mg tablet,delayed release (DR/EC) See Rx Instructions .ROUTE .COMPLEX Qty: 90 0RF Dose Instruction: TAKE ONE TABLET BY MOUTH EVERY DAY FOR heart health Rx Instructions: TAKE ONE TABLET BY MOUTH EVERY DAY FOR heart health magnesium oxide 250 mg magnesium tablet See Rx Instructions .ROUTE .COMPLEX Qty: 60 2RF Dose Instruction: TAKE TWO TABLETS BY MOUTH EVERY DAY Rx Instructions: TAKE TWO TABLETS BY MOUTH EVERY DAY gabapentin 100 mg capsule 100 mg PO DAILY Qty: 90 1RF losartan-hydrochlorothiazide 100-25 mg tablet See Rx Instructions .ROUTE .COMPLEX Qty: 90 0RF Dose Instruction: TAKE ONE TABLET BY MOUTH EVERY DAY Rx Instructions: TAKE ONE TABLET BY MOUTH EVERY DAY omeprazole 40 mg capsule,delayed release(DR/EC) 40 mg PO DAILY Qty: 90 1RF atorvastatin 80 mg tablet 80 mg PO DAILY Qty: 90 1RF (DME) pen needle, diabetic 32 gauge x 5/32 needle See Rx Instructions .Route Qty: 100 2RF Rx Instructions: As directed insulin glargine U-300 conc [Toujeo Max U-300 SoloStar] 300 unit/mL (3 mL) insulin pen 140 unit SQ DAILY 30 Days Qty: 14.001 2RF Referrals Follow up/Referrals: Jose Cifuentes MD [Primary Care Provider, Internal Medicine] - See instructions Activity Restrictions/Add. Instructions Additional Instructions/Restrictions: Please follow-up with your primary care provider. Please return to the emergency department if you develop any new or worsening symptoms or become concerned for your health. Clinical Impressions Clinical Impression: Left leg pain Print Language Print Language: Romansh Discharge ED Provider: Sarab[facility] HPI General Chief complaint: PAIN Stated complaint: L ankle pain, radiating up leg Time Seen by Provider: 07/17/25 01:01 History of Present Illness HPI narrative: 70-year-old male with history of poorly controlled diabetes presents for intermittent left lower leg pain. He reports it has been going on for about a week. The pain is intermittent. Sometimes worse with sitting still, improved with walking. He reports it is sharp, stabbing. Goes from the top of the foot up the front of the leg to the knee, sometimes to the lateral mid thigh. Denies any injury to the area. Denies any swelling, redness. Denies any fever or infectious symptoms. He reports it is not necessarily painful to put weight on it. Related Data Home Medications ?Medication ?Instructions ?Recorded ?Confirmed fluticasone propionate 50 1 spray intranasal DAILY All ergy 03/25/22 05/21/25 mcg/actuation nasal symptoms spray,suspension (Flonase Allergy Relief) Previous Rx's ?Medication ?Instructions ?Recorded cetirizine 10 mg tablet 10 mg PO DAILY Allergy sympt oms 02/24/24 #90 tabs tamsulosin 0.4 mg capsule See Rx Instructions .Route 0 10/23/24 .COMPLEX #180 caps aspirin 81 mg tablet,delayed See Rx Instructions .Rout e 01/23/25 release .COMPLEX #90 tabs magnesium oxide See Rx Instructions .Route 0 01/23/25 .COMPLEX #60 tabs gabapentin 100 mg capsule 100 mg PO DAILY Pain #90 cap s 04/27/25 acyclovir 800 mg tablet 800 mg PO 5XD #50 tabs 05/08 metformin 500 mg tablet,extended 500 mg PO DAILY #30 t abs 05/08/25 release 24 hr losartan 100 See Rx Instructions .Route 0 05/28/25 mg-hydrochlorothiazide 25 mg tablet .COMPLEX #90 tabs atorvastatin 80 mg tablet 80 mg PO DAILY Cholesterol # 90 tabs 06/28/25 omeprazole 40 mg capsule,delayed 40 mg PO DAILY GERD # 90 caps 06/28/25 release pen needle, diabetic 32 gauge x #100 ea 07/02/25 insulin glargine U-300 conc 300 140 unit (0.4667 mL) S Q DAILY 07/16/25 unit/mL (3 mL) subcutaneous pen Diabetes 30 days #14.0 01 mL (Toujeo Max U-300 SoloStar) Allergies Allergy/AdvReac Type Severity Reaction Status Date / Time Penicillins Allergy Hives Verified 05/21/25 12:37 [facility] Disclaimer: The information contained in this section may have been updated after the patient was seen, as this information can be updated by other users. Medical History Type 2 diabetes mellitus with other skin complications Body mass index [BMI] 35.0-35.9, adult Skin cancer Right knee pain History of colon polyps Sleep apnea Overactive bladder Osteoarthritis History of gastroesophageal reflux (GERD) History of cataract Diabetes mellitus, type 2 Allergies Aneurysm Hyperlipidemia Hypertension Surgical History History of cataract surgery History of left shoulder replacement History of colonoscopy Family History Other Family history of diabetes mellitus type II Social History Smoking Status: Never smoker alcohol intake: never substance use type: denies use current occupational status: retired Travel in the last 8 weeks?: None household members: spouse caffeine: Yes Have you lived/traveled outside [place] in past 30 days?: No Contact w/someone who lives/traveled outside [place] past 30 days?: No Exposure to someone with infectious disease in past 14 days?: No Do you have a fever (greater than 100.4 F or 38 C)?: No Have you tested positive for COVID-19?: No Exposed to someone with COVID-19 in past 14 days?: No Do you have a sore throat?: No Do you have a cough?: No Do you have any weakness?: No Do you have any diarrhea?: No Are you experiencing any unusual bleeding?: No Do you have any muscle aches/pain?: No Do you have any abdominal pain?: No Are you experiencing loss of taste or smell?: No Other Medical History Have you received the Flu Vaccine for this season: Yes Have you received the Pneumonia Vaccine: Yes ROS Obtained: Yes All systems reviewed & no additional complaints except as documented Physical Exam General General appearance: alert and in no apparent distress Head Head exam: atraumatic and normocephalic Eye Eye exam: Present normal appearance, PERRL and EOMI ENT ENT exam: Present normal oropharynx and normal external ear exam Neck Neck exam: Present normal inspection and full ROM Chest Chest inspection: Present normal inspection and symmetric chest wall rise; Absent tenderness Respiratory Respiratory exam: Present normal lung sounds bilaterally; Absent respiratory distress Cardiovascular Cardiovascular exam: Present regular rate and normal rhythm Abdominal Exam Abdominal exam: Present soft; Absent distention, tenderness or guarding Extremities Exam Extremities exam: Present normal inspection and other (No erythema or swelling in the knee, calf, ankle. Normal sensation, normal pulses, good capillary refill.); Absent edema or joint swelling Back Exam Back exam: Present normal inspection; Absent tenderness Neurological Exam Neurological exam: Present alert and oriented X3; Absent motor sensory deficit Psychiatric Psychiatric exam: Present normal affect and normal mood Skin Skin exam: Present warm, dry and normal color Lymphatic Lymphatic Findings: no adenopathy Medical Decision Making Medical Records Medical records reviewed: Yes I reviewed the patient's medical records. Screening: Per USPSTF and CDC recommendations, given the prevalence of disease in our region, it is our hospital?s policy to screen for HIV and viral Hepatitis for all patients aged 18 and over and those with ongoing risk factors. Chip Inquiry Pt receiving controlled substance: No Chip was queried for this patient: No Vital Signs: 07/17/25 01:04 07/17/25 01:09 07/17/25 01:17 Temperature 98.5 F 98.6 F Temperature Source Oral Pulse Rate 97 H 98 H Pulse Rate [Right] 102 H Respiratory Rate 16 16 18 Blood Pressure 194/101 H 181/84 H Blood Pressure [Right Arm] 194/101 H Blood Pressure Mean [Right Arm] 132 02 Sat by Pulse Oximetry 96 97 Oxygen Delivery Method Room Air Room Air Lab Data Lab results reviewed: Yes I reviewed the patient's lab results. Orders (Tests/Meds): ED MEDICATIONS Discontinued Medications Generic Name Dose Route Start Last Admin Trade Name Freq PRN Reason Stop Dose Admin Acetaminophen 1,000 mg 07/17/25 01:17 07/17/25 01:24 Acetaminophen 500mg Tab PO 07/17/25 01:18 1,000 mg ONCE ONE Administration Cyclobenzaprine HCl 10 mg 07/17/25 01:16 07/17/25 01:23 Cyclobenzaprine 10mg Tablet PO 07/17/25 01:17 10 mg ONCE ONE Administration Lidocaine 1 each 07/17/25 01:17 07/17/25 01:24 Lidocaine 5% Transdermal Patch TD 07/17/25 01:18 1 each ONCE ONE Administration Medical Decision Narrative: 70-year-old male with history of poorly controlled diabetes presents for intermittent left lower leg pain over the last week history was obtained via interactive discussion with patient. On arrival, patient is [afebrile, hemodynamically stable, satting appropriately, alert, oriented x4, GCS 15], moving all extremities spontaneously. Full physical exam performed and significant for completely normal lower extremity exam. No swelling in the knee, calf, ankle. Palpable pulses, good cap refill. No tenderness in the popliteal fossa. Differential includes but is not limited to neuropathy related to poorly controlled diabetes, arterial/venous insufficiency, DVT, fracture, gout, septic/osteo/inflammatory arthritis. Based on history and exam, no evidence of arterial or venous insufficiency or DVT. Patient is able to bear weight without difficulty and denies any trauma suggesting no significant concern for fracture. No evidence of gout based on exam. No evidence of joint infection. I considered obtaining labs, radiographic imaging, but given his normal exam I do not think they are indicated at this time. Patient has a follow-up appointment with his PCP in the morning. I recommend he take Tylenol and ibuprofen as needed for pain. I gave him a dose of a muscle relaxer as well as a lidocaine patch and Tylenol. I offered prescription for a muscle relaxer, but he reports he would prefer to follow-up with Dr. Cifuentes to see what he suggest. Procedures Risk/Benefits of Procedure(s) Were Explained: Yes Critical Care Critical Care Time Critical Care Time: No
[2025-07-17 01:04] VITALS: BP 194/101; PULSE 102; RESP 16; TEMP 36.9; O2SAT 96; BMI 38.4
--- OUTSIDE RECORDS SUMMARY | 2025-07-17 01:07 | XMS_ITS | Patient Health Record ---
Author Organization [facility] Address [address] [place] [address] Care Team Providers Care Single Pointed Operator Name Role Phone Michael Ann Primary Care Provider [phone] Migration, Provider Unavailable Unavailable Allergies Allergen (clinical drug ingredient) Drug/Non Drug Allergy documented on EMR Reaction Allergy Type Onset Date Status Penicillin parents allergic, has never had Drug Allergy Active Reason For Referral No Information Medications Medication SIG (Take, Route, Frequency, Duration) Notes Start Date End Date Status Aspirin Low Dose 81 MG TAKE ONE TABLET B Y MOUTH EVERY DAY; Duration: 30 days Active Flonase Allergy Relief 50 MCG/ACT 1 spray(s) intranasally once a day; Duration: 30 days 06/09/2019 Active Atorvastatin Calcium 80 MG 1 tab(s) oral ly once a day at bedtime; Duration: 30 days Active Gabapentin 100 MG 1 cap(s) orally at n ight; Duration: 90 day(s) 10/07/2023 Active Promethazine-DM 6.25-15 MG/5ML 5 mL orally every 6 hours; Duration: 5 days 12/11/2022 Active Losartan Potassium 100 MG 1 tab(s) orall y once a day; Duration: 30 Active Tamsulosin HCl 0.4 MG 1 cap(s) orally on ce a day; Duration: 30 Active metFORMIN HCl 1000 MG 1 tab(s) orally 2 times a day; Duration: 90 days Active Glimepiride 2 MG 1 tab(s) orally twic e daily; Duration: 30 days Active Cetirizine HCl 10 MG 1 tab(s) orally onc e a day; Duration: 90 days Active Doxycycline Monohydrate 100 MG 1 tab(s) orally 2 times a day; Duration: 10 day(s) 12/11/2022 Active Ibuprofen 800 MG 1 tab(s) orally 3 ti mes a day for one week, then tid prn; Duration: 30 day(s) Active Omeprazole 40 MG TAKE ONE CAPSULE BY MOUTH EVERY DAY; Duration: 30 Active Immunizations Vaccine Route Administration Date Status Comme nts FLUZONE 6MO - OLDER IM Intramuscular 06/29/2019 Administer ed Fluzone High Dose IM Intramuscular 06/10/2020 Administered Fluzone High Dose IM Intramuscular 07/07/2021 Administered Influenza (Fluzone)--Medicare only IM Intramuscular 07/27/2016 Administered Influenza-Fluzone 3+years (NON-MEDICARE) IM Intramuscular 07/19/2017 Administered Influenza-Fluzone 3+years (NON-MEDICARE) IM Intramuscular 06/13/2018 Administered Pneumovax 23 IM Intramuscular 04/29/2020 Administered Social History Tobacco Use: Social History Observation Description Date Details (start date - stop date) Never Smoker NA - NA Smoking: Question Answer Notes Are you a: nonsmoker Problems Problem Type SNOMED Code ICD Code Onset Dates Problem Status W/U Status Risk Notes Problem Type II diabetes mellitus without complication (566829604) Type 2 diabetes mellitus without complications (E11.9) Active confirmed Problem Morbid obesity (disorder) (332376048) Morbid (severe) obesity due to excess calories (E66.01) Active confirmed Problem Hyperlipidemia (60424181) Hyperlipemia, idiopathic familial (E78.5) Active confirmed Problem Essential hypertension (11494716) Hypertension, essential (I10) Active confirmed Problem Sleep disturbance (20913247) Sleep disturbance (G47.9) Active confirmed Problem Gastroesophageal reflux disease with esophagitis (disorder) (675235674) GERD with esophagitis (K21.0) Active confirmed Problem Osteoarthritis of knee (438029297) Primary osteoarthritis of right knee (M17.11) Active confirmed Problem Diabetic peripheral neuropathy (205029329) Diabetic peripheral neuropathy (E11.42) Active confirmed Problem Chronic serous otitis media (66193655) Left chronic serous otitis media (H65.22) Active confirmed Problem Benign prostatic hypertrophy with outflow obstruction (971350993) BPH loc w urin obs/LUTS (N40.1) Active confirmed Problem Seasonal allergic rhinitis (834465231) Seasonal allergic rhinitis, unspecified allergic rhinitis trigger (J30.2) Active confirmed Problem Anxiety diarrhea (27109277) 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) Active confirmed Problem Acute left-sided low back pain without sciatica (M54.50) Active confirmed Encounters Encounter Location Date Provider Diagnosis [facility] [address] [place] [address] 12/29/2024 Provider Migration Acute bronchopneumonia J18.0 Assessments Encounter Date Diagnosis (ICD Code) Assessment Notes Treatment Notes Treatment Clinical Notes Section Notes 12/29/2024 Acute bronchopneumonia (ICD-10 - J18.0) Plan Of Treatment Pending Test Test Name Order Date M-Vitamin B12 03/17/2021 M-Vitamin B12 08/11/2021 Insurance Providers Payer Name Payer Address Payer Phone Subscriber Number Group Number Insured Name Patient Relationship to Insured Coverage Start Date Coverage End Date [employer] [address] [address] [place] [address] [phone] [id number] Lai Henry Self - patient is the insured Medications Administered Medication Instructions Date of Administration Dosage Notes Dexamethasone 4mg Injection 09/03/2021 4 mg Triamcinolone Acetonide 40mg Injection 05/25/2018 1 mL Triamcinolone Acetonide 40mg Injection 06/29/2019 1 mL TRIAMCINOLONE 08/24/2021 1 mL right knee intra-articular Medical (General) History Medical History History ICD Code HLD DM II Surgical History Surgery Date(Month/Year) colonoscopy -with tubular ad enoma, repeat in May 2022 with 2 polyps, recommend repeat 3 years 2014 EGD 11/2018
[2025-07-17 01:09] VITALS: BP 194/101; PULSE 97; RESP 16; O2SAT 97
[2025-07-17 01:17] VITALS: BP 181/84; PULSE 98; RESP 18; TEMP 37; O2SAT 99
[2025-07-17] MEDS: CYCLOBENZAPRINE 10MG TABLET 10 MG PO (01:23)
[2025-07-17] MEDS: LIDOCAINE 5% TRANSDERMAL PATCH 1 EACH TD (01:24)
[2025-07-17] MEDS: ACETAMINOPHEN 500MG TAB 1000 MG PO (01:24)
== END 2025-07-17 01:28 | disposition home or self-care (01) ==
PROVIDERS: Emergency Provider Emergency Medicine; PCP Family Medicine
DX: M79.605 Pain in left leg (principal); E11.9 Type 2 diabetes mellitus without complications; Z79.4 Long term (current) use of insulin
CPT/HCPCS: 99283